=== PATIENT | male | born 1950 ===

== ENCOUNTER 2023-03-21 17:37 | Inpatient (IN) | payer MEDICARE, SELFPAY ==
[2023-03-21 18:13] VITALS: BMI 22.2
[2023-03-21 18:26] VITALS: BP 138/84; PULSE 79; RESP 18; TEMP 36.7; O2SAT 96
--- NOTE | 2023-03-21 19:09 | PC.ADMIT ---
Kai was admitted to at 1750 from [place] on a CV for treatment of MDD and anxiety d/o. .? Precipitant of admission include Patient cutting left wrists superficially in an attempt to complete suicide. Patient then called an ambulance seeking help. Kai is alert and oriented x4 during admission assessment. Pleasant and cooperative. Mood is depressed with a congruent affect. Denies SI/HI/AH/VH. Patient reported that he does not want to harm himself anymore, I just want help . Thought process is linear and clear. Does not exhibit any paranoia, delusional, or overt psychosis.?Speech WNL. Eye contact appropriate and WNL. Reports that at home he has been increasingly depressed. Stated that anxiety and depression are both severe. Attributed these? to the passing of his 5 years ago and removal of his prostate years ago as well. Patient endorsed having vivid nightmares which included images of his . Reported poor sleep due to these nightmares. Reported appetite at home is poor as well, weight loss unknown.? No acute issues with patients at this time. Wears a brief d/t urinary incontinence.? Per policy patient is on 5 minute checks. Appears to be steady on his feet with no ambulatory aid.? Med Rec [facility] [place]. Patient reported that he only takes the Ativan, Mlatonin, and Mirtazapine regularly.
[2023-03-21] MEDS: LORazepam 0.5 MG TABLET PO (20:06)
[2023-03-21] MEDS: Mirtazapine 15 MG TABLET PO (20:06)
[2023-03-21] MEDS: Gabapentin 100 MG CAPSULE 200 MG PO (20:06)
[2023-03-21] MEDS: risperiDONE 0.25 MG TABLET 0.5 MG PO (20:06)
[2023-03-21] MEDS: Melatonin 3 MG TABLET 9 MG PO (20:23)
[2023-03-22 10:17] VITALS: BP 139/70; PULSE 76; RESP 15; TEMP 36.7; O2SAT 96
[2023-03-22] MEDS: oxyBUTYnin chloride ER 5 MG TAB.ER.24 10 MG PO (10:20)
[2023-03-22] MEDS: Gabapentin 100 MG CAPSULE 200 MG PO ×3 (10:21→21:02)
[2023-03-22] MEDS: DULoxetine HCl 20 MG CAPSULE.DR 40 MG PO (10:21)
[2023-03-22] MEDS: risperiDONE 0.25 MG TABLET 0.5 MG PO ×2 (10:21→21:02)
[2023-03-22] MEDS: LORazepam 1 MG TABLET PO ×2 (10:35→21:02)
--- NOTE | 2023-03-22 11:03 | HO.PSYADMNOT ---
HPI Date of Service: 03/22/23 Chief Complaint: F4.1 General anxiety/MDD recurrent Sources of Information: patient interviewed, chart reviewed and crisis/core team assessment reviewed HPI Subjective Notes: Zarco Warning and Conditional Voluntary Narrative: The patient is a 72-year-old male, , father of 1 adult daughter who is not involved in his care, with good social support provided by his siblings, living alone with a prior history of major depressive disorder. Also, the patient had been taking Ativan for several months to the point that he could have a iatrogenic dependence. According to the crisis assessment, the patient called 911 as for help since he was feeling depressed and suicidal with a plan to cut superficially with the [employer] equipment that he had. He was rushed to the emergency room, says by crisis and transferring to this facility for psychiatric stabilization since he reported suicidal ideation and he was unable to contract for safety. According to the crisis assessment, the patient had prior psychiatric admissions and he had been using lorazepam for several months. He stated that he ran out of lorazepam 3 days ago and he stated that he was in in a state of respiration and he had suicidal thoughts with a plan to hurt himself with the point of an arrow. During the intake interview, the patient was pleasant, cooperative, he understood Zarco warning he was able to contract for safety in the facility. He stated that he ran out of aggressive and 3 days before of the admission to the emergency room he was feeling very desperate. He admitted that he has been suffering of depressive symptoms for the last 5 years after his . He complained of depressed mood, anhedonia, lack of energy, feelings of hopelessness and worthlessness and recently suicidal thoughts. He adamantly denies psychotic symptoms and he was able to contract for safety in the facility. He admitted that he has been admitted several times before either to the [facility] in [place] and psychiatric units at [facility] in [place]. According to the crisis assessment, the patient had been using and most likely abusing and lorazepam and Tylenol p.m. and he has been poorly compliant with his regular antidepressants. Past Psychiatric History: According to the patient his 1st psychiatric contact was 3 years ago and he was started on lorazepam. He had been admitted at the [facility] in [facility] for 6 months to years ago. Also he has at least 3 prior admissions at [facility]. He stated that all his depressive symptoms worsened after the passing of his . Medical Evaluation Reviewed: Hospitalist Dimitri Pending [facility] Family History: Denies Social History: The patient is the oldest of 4 children, his milestones were achieved at expected patient was raised by his parents he had a good childhood and he graduated from high school. 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 He remarried and has an adult daughter who was not involved in his life. He has good support by his siblings. Substance History: The patient denies active substance abuse but according to the chart he had a DUI 25 years ago Trauma History: Denies Diagnostics Vital Signs (24Hr): Vital Signs - 24 hr 03/21/23 18:26 03/22/23 10:17 Temperature 98.1 F 98.0 F Pulse Rate 79 76 Respiratory Rate 18 15 Blood Pressure 138/84 139/70 Pulse Oximetry 96 96 Oxygen Delivery Method Room Air Room Air BMI result Body Mass Index 22.2 Meds/Allergies Meds Home Medications Medication Instructions Recorded Confirmed Type duloxetine 20 mg capsule,delayed 40 mg PO DAILY 03/21/23 03/21/23 History release gabapentin 100 mg capsule 200 mg PO TID 03/21/23 03/21/23 History lorazepam 0.5 mg tablet 0.5 mg PO BID PRN anxiety 03/21/23 03/21/23 History melatonin 3 mg tablet 9 mg PO BEDTIME PRN insomnia 03/21/23 03/21/23 History mirtazapine 15 mg tablet 15 mg PO BEDTIME 03/21/23 03/21/23 History oxybutynin chloride 10 mg 10 mg PO DAILY 03/21/23 03/21/23 History tablet,extended release 24 hr risperidone 0.25 mg tablet 0.5 mg PO BID 03/21/23 03/21/23 History risperidone 0.5 mg disintegrating 0.5 mg PO BID PRN Anxiety 03/21/23 03/21/23 History tablet Allergies Allergies Allergy/AdvReac Type Severity Reaction Status Date / Time No Known Allergies Allergy Verified 03/21/23 18:13 Assessment & Plan Assessment & Plan (1) Major depressive disorder, recurrent episode: Status: Acute Code(s): F33.9 - Major depressive disorder, recurrent, unspecified (2) Benzodiazepine dependence: Status: Acute Code(s): F13.20 - Sedative, hypnotic or anxiolytic dependence, uncomplicated Plan The patient is an elderly male, , with a prior history of major depressive disorder who probably is dependent to benzodiazepines at this moment, admitted for suicidal ideation in the context of running out of his lorazepam. 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 Plan 1. Gather collateral information. 2. Continue with Ativan 1 mg p.o. b.i.d. p.r.n. anxiety. The patient is fully aware that no acid but is highly addictive and he should be using sparingly. 3. The patient reported that he was on Remeron in the past we will started tonight. 4. Continue with medical workout. 5. Reassessment with results. 6. 15 minute checks since the patient is able to contract for safety in the facility. Patient educated on: diagnosis and therapeutic strategies Informed Consent: understands Reason for continued inpatient stay Substantial Risk for: harm to self, inability to function, rapid decompensation and med/psych decompensation Statement Statement: I have reviewed the history and physical and performed a pertinent examination on my patient. No changes have occurred unless specified. If the History and Physical was not performed prior to admission, the Hospitalist's service will be consulted for completing the admission physical. Time Spent With Patient Time: Total time managing care of this patient today __45__ minutes.
--- NOTE | 2023-03-22 13:39 | P.CONHOSP_ITS ---
History of Present Illness Data of Consult Service Date: 03/22/23 Primary Care Provider: Unknown Physician HPI Reason for consult: Admission H&P Pt is a 72-year-old male with a PMH significant for?prostatectomy in 2013, current smoker of 2 pack per day, anxiety, and depression who is admitted to [facility] for increasing depression and anxiety with SI and suicide attempt of superficially cutting his left wrist. Medical consult for admission H&P. ?Patient states that he ?diffuse lousy and awful?. Complains of feeling depressed and stressed, dizzy and lightheaded, and having trouble breathing with an occasional mostly nonproductive cough. Patient also complains of chronic constipation stating that he normally has a bowel movement every day but did not have one yesterday and today had to really strain in order to have a movement, which is trying very hard. Patient states that his difficulty breathing and lightheadedness and dizziness is often associated with an increase in anxiety. Denies chest pain/pressure, palpitations. Patient has been experiencing increased anxiety and depression since his 5 years ago. Patient also notes he has had some complications from prostatectomy such as leaking of urine. Review of Systems Review of Systems: Increased depression and anxiety Occasional lightheadedness and dizziness Occasional trouble breathing Occasional nonproductive cough Constipation Denies chest pain/pressure, palpitations No fever, chills, nausea, vomiting, abdominal pain Yes all other systems are reviewed and are negative [facility] Social History Household Members: None Housing: House Do you presently have visiting nurse or other home services: No Patient Tobacco Use Status: Current everyday Tobacco user Tobacco use type: Cigarette Cigarette Packs Per Day: 1 Cigarettes Per Day: 20.0 Smoked in Last 30 Days: Yes e-Cigarette/Vaping Use: Never Used Patient Interested in Nicotine Replacement: No Second Hand Smoke Exposure: No Use of substances other than those prescribed or required for medical reasons: No Currently Displaying Signs/Symptoms of Drug Intoxication Withdrawal: No Have you been hit, kicked, punched, or otherwise hurt by someone within the past year? If so, by whom?: No Do you feel safe in your current relationship?: No Current Relationship Is there a partner from a previous relationship who is making you feel unsafe now?: No Are you made to feel afraid or neglected: No Advance Directives: No Advance Directives Information Provided: No Do you have thoughts of harming others: None Do you have a plan to hurt others: No Plan Recently lost weight without trying: Unsure How much weight loss: Unsure Eating poorly because of decreased appetite: Yes Nutrition screen score: 5 Nutrition Risks: No Nutritional Risk Poor oral hygiene: No service: Yes (WUT) Sexual orientation: Straight/Heterosexual Meds Allergies Allergy/AdvReac Type Severity Reaction Status Date / Time No Known Allergies Allergy Verified 03/21/23 18:13 Active Medications: Current Medications Acetaminophen (Acetaminophen 325 Mg Tablet) 650 mg PO Q6H PRN PRN Reason: Headache/Pain Mild Scale (1-3) Al Hydroxide/Mg Hydroxide (Magnesium Hydrox/Alum Hydrox 30 Ml Oral.Susp) 30 ml PO Q6H PRN PRN Reason: Heartburn/Nausea Duloxetine HCl (Duloxetine Hcl 20 Mg Capsule.Dr) 40 mg PO DAILY [facility] Last Admin: 03/22/23 10:21 Dose: 40 mg Gabapentin (Gabapentin 100 Mg Capsule) 200 mg PO TID [facility] Last Admin: 03/22/23 10:21 Dose: 200 mg Lorazepam (Lorazepam 1 Mg Tablet) 1 mg PO BID PRN PRN Reason: Anxiety Last Admin: 03/22/23 10:35 Dose: 1 mg Magnesium Hydroxide (Milk Of Magnesia 30 Ml Oral.Susp) 30 ml PO DAILY PRN PRN Reason: Constipation Melatonin (Melatonin 3 Mg Tablet) 9 mg PO BEDTIME PRN PRN Reason: insomnia Last Admin: 03/21/23 20:23 Dose: 9 mg Mirtazapine (Mirtazapine 15 Mg Tablet) 15 mg PO BEDTIME [facility] Last Admin: 03/21/23 20:06 Dose: 15 mg Nicotine Polacrilex (Nicotine Polacrilex 2 Mg Gum) 4 mg BUCCAL Q2H PRN PRN Reason: Nicotine Cravings Oxybutynin Chloride (Oxybutynin Chloride Er 5 Mg Tab.Er.24) 10 mg PO DAILY [facility] Last Admin: 03/22/23 10:20 Dose: 10 mg Risperidone (Risperidone 0.25 Mg Tablet) 0.5 mg PO BID [facility] Last Admin: 03/22/23 10:21 Dose: 0.5 mg Risperidone (Risperidone 0.5 Mg Tablet) 0.5 mg PO BID PRN PRN Reason: Anxiety Home Medications Medication Instructions Recorded Confirmed Last Taken Type duloxetine 20 mg capsule,delayed 40 mg PO DAILY 03/21/23 03/21/23 Unknown History release gabapentin 100 mg capsule 200 mg PO TID 03/21/23 03/21/23 Unknown History lorazepam 0.5 mg tablet 0.5 mg PO BID PRN anxiety 03/21/23 03/21/23 Unknown History melatonin 3 mg tablet 9 mg PO BEDTIME PRN insomnia 03/21/23 03/21/23 Unknown History mirtazapine 15 mg tablet 15 mg PO BEDTIME 03/21/23 03/21/23 Unknown History oxybutynin chloride 10 mg 10 mg PO DAILY 03/21/23 03/21/23 Unknown History tablet,extended release 24 hr risperidone 0.25 mg tablet 0.5 mg PO BID 03/21/23 03/21/23 Unknown History risperidone 0.5 mg disintegrating 0.5 mg PO BID PRN Anxiety 03/21/23 03/21/23 Unknown History tablet Physical Exam Vital Signs and Narrative: Vital Signs: Last Vital Signs Temp 98.0 F 03/22/23 10:17 Pulse 76 03/22/23 10:17 Resp 15 03/22/23 10:17 BP 139/70 03/22/23 10:17 Pulse Ox 96 03/22/23 10:17 O2 Del Method Room Air 03/22/23 10:17 BMI result Body Mass Index 22.2 Constitutional: Alert, in no acute distress. Mental Status: Oriented to person, place and time. Eyes: Pupils are equal, round, and reactive to light. Ear, Nose, and Throat: Oropharynx clear, mucous membranes moist. Ears and nose without deformities. Trachea midline. Respiratory: Clear to auscultation bilaterally. No wheezing, rales, or rhonchi. Cardiovascular: S1, S2 regular. No murmurs, rubs, or gallops. Gastrointestinal: Abdomen soft, non-tender, non-distended. Normal bowel sounds. Neurologic: Cranial nerves II-XII are grossly intact bilaterally. No focal neurological deficits. Moves all extremities spontaneously. Extremities: No edema. Psychiatric: Anxious, affect flat. Assessment and Plan (1) Routine history and physical examination of adult: Status: Acute Plan Pt is a 72-year-old male with a PMH significant for?prostatectomy in 2013, current smoker of 2 pack per day, anxiety, and depression who is admitted to [facility] for increasing depression and anxiety with SI and suicide attempt of superficially cutting his left wrist. Medical consult for admission H&P. ? Mood disorder Plan as per psychiatry Lightheaded, dizziness Likely secondary to anxiety Patient's BP stable, not hypotensive Encourage p.o. intake of liquids Difficulty breathing/chronic cough Likely secondary to anxiety and history of smoking Lungs clear to auscultation Patient smokes 2 packs of cigarettes a day Does not want nicotine replacement therapy Smoking cessation advised Constipation Patient states that he has had chronic constipation, the states he normally has bowel movement every day Encourage high-fiber diet, p.o. intake of fluids, ambulation, and stool softeners Thank you for allowing us to participate in the care of this patient. Signing off at this time. Please let us know if there are any acute complaints or questions. Time Spent With Patient Time: Total time managing care of this patient today ____ minutes.
--- NOTE | 2023-03-22 14:11 | MHC.CLN ---
NUTRITION CONSULT FOR WEIGHT LOSS AND DECREASED APPETITE. REPORTS UBW 147#. CURRENT WEIGHT APPROX 146#. ATE 100% AT BREAKFAST AND LUNCH TODAY. REPORTS GOOD APPETITE AND TAKES BOOST AT HOME. ADDING ENSURE BID-CHOCOLATE FLAVOR. PROVIDES 700 KCALS, 40 G PROTEIN.
[2023-03-22 20:55] VITALS: BP 143/70; PULSE 98; RESP 17; TEMP 36.9; O2SAT 93
[2023-03-22] MEDS: Melatonin 3 MG TABLET 9 MG PO (21:01)
[2023-03-22] MEDS: Mirtazapine 15 MG TABLET PO (21:02)
[2023-03-23 08:15] VITALS: BP 113/77; PULSE 90; RESP 18; TEMP 36.1; O2SAT 96
[2023-03-23] MEDS: oxyBUTYnin chloride ER 5 MG TAB.ER.24 10 MG PO (09:10)
[2023-03-23] MEDS: risperiDONE 0.25 MG TABLET 0.5 MG PO ×2 (09:10→20:19)
[2023-03-23] MEDS: Gabapentin 100 MG CAPSULE 200 MG PO ×3 (09:10→20:19)
[2023-03-23] MEDS: LORazepam 1 MG TABLET PO ×2 (09:10→20:19)
[2023-03-23] MEDS: DULoxetine HCl 20 MG CAPSULE.DR 40 MG PO (09:10)
--- NOTE | 2023-03-23 11:50 | P.PNPSI_ITS ---
Subjective Subjective Date of Service: 03/23/23 Reason For Visit: F4.1 General anxiety/MDD recurrent Subjective Notes: Conditional Voluntary Interim History: The nursing staff reported the patient spent most of the time his bed, he refused Ativan p.r.n. and so far he has been medication compliant. He slept well last night. On interview the patient reports mild dysphoria and agreed to continue with treatment. We will try to gather more collateral information. Mental Status Exam Mental Status Exam Patient Appearance: Well Grooomed and Appropriate Patient Orientation: Person and Situation Level of Consciousness: Awake and Appropriate Mood Description: Constricted Affect Description: Calm Patient Cognition Impaired: Yes Ability to Follow Directions: Good Speech Pattern: Clear Hallucinations: None Delusions: Not Present Thought Process: Linear Thought Content: positive for Hennessey and positive for Goal Oriented Judgement: Fair Diagnostics Vital Signs (24Hr): Vital Signs - 24 hr 03/22/23 20:55 03/23/23 08:15 Temperature 98.4 F 96.9 F Pulse Rate 98 90 Respiratory Rate 17 18 Blood Pressure 143/70 H 113/77 Pulse Oximetry 93 96 Oxygen Delivery Method Room Air Room Air BMI result Body Mass Index 22.2 Medications Medications Current Medications Acetaminophen (Acetaminophen 325 Mg Tablet) 650 mg PO Q6H PRN PRN Reason: Headache/Pain Mild Scale (1-3) Al Hydroxide/Mg Hydroxide (Magnesium Hydrox/Alum Hydrox 30 Ml Oral.Susp) 30 ml PO Q6H PRN PRN Reason: Heartburn/Nausea Duloxetine HCl (Duloxetine Hcl 20 Mg Capsule.Dr) 40 mg PO DAILY [facility] Last Admin: 03/23/23 09:10 Dose: 40 mg Gabapentin (Gabapentin 100 Mg Capsule) 200 mg PO TID [facility] Last Admin: 03/23/23 09:10 Dose: 200 mg Lorazepam (Lorazepam 1 Mg Tablet) 1 mg PO BID PRN PRN Reason: Anxiety Last Admin: 03/23/23 09:10 Dose: 1 mg Magnesium Hydroxide (Milk Of Magnesia 30 Ml Oral.Susp) 30 ml PO DAILY PRN PRN Reason: Constipation Melatonin (Melatonin 3 Mg Tablet) 9 mg PO BEDTIME PRN PRN Reason: insomnia Last Admin: 03/22/23 21:01 Dose: 9 mg Mirtazapine (Mirtazapine 15 Mg Tablet) 15 mg PO BEDTIME [facility] Last Admin: 03/22/23 21:02 Dose: 15 mg Nicotine Polacrilex (Nicotine Polacrilex 2 Mg Gum) 4 mg BUCCAL Q2H PRN PRN Reason: Nicotine Cravings Oxybutynin Chloride (Oxybutynin Chloride Er 5 Mg Tab.Er.24) 10 mg PO DAILY [facility] Last Admin: 03/23/23 09:10 Dose: 10 mg Risperidone (Risperidone 0.25 Mg Tablet) 0.5 mg PO BID [facility] Last Admin: 03/23/23 09:10 Dose: 0.5 mg Risperidone (Risperidone 0.5 Mg Tablet) 0.5 mg PO BID PRN PRN Reason: Anxiety Allergies Allergies Allergy/AdvReac Type Severity Reaction Status Date / Time No Known Allergies Allergy Verified 03/21/23 18:13 Assessment & Plan Assessment & Plan (1) Major depressive disorder, recurrent episode: Status: Acute Code(s): F33.9 - Major depressive disorder, recurrent, unspecified (2) Benzodiazepine dependence: Status: Acute Code(s): F13.20 - Sedative, hypnotic or anxiolytic dependence, uncomplicated Plan The patient is an elderly male, , with a prior history of major depressive disorder who probably is dependent to benzodiazepines at this moment, admitted for suicidal ideation in the context of running out of his lorazepam. 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 Plan 1. Gather collateral information. 2. Continue with Ativan 1 mg p.o. b.i.d. p.r.n. anxiety. The patient is fully aware that no acid but is highly addictive and he should be using sparingly. 3. The patient reported that he was on Remeron in the past we will started tonight. 4. Continue with medical workout. 5. Reassessment with results. 6. 15 minute checks since the patient is able to contract for safety in the facility. Reason for continued inpatient stay Substantial Risk for: inability to function, rapid decompensation and med/psych decompensation Time Spent With Patient Time: Total time managing care of this patient today __20__ minutes.
[2023-03-23 19:46] VITALS: BP 141/65; PULSE 86; RESP 16; TEMP 36.4; O2SAT 93
[2023-03-23] MEDS: Melatonin 3 MG TABLET 9 MG PO (20:19)
[2023-03-23] MEDS: Mirtazapine 15 MG TABLET PO (20:21)
[2023-03-24 07:55] VITALS: BP 137/75; PULSE 74; RESP 16; TEMP 36.4; O2SAT 95
[2023-03-24] MEDS: DULoxetine HCl 20 MG CAPSULE.DR 40 MG PO (08:15)
[2023-03-24] MEDS: risperiDONE 0.25 MG TABLET 0.5 MG PO ×2 (08:15→20:45)
[2023-03-24] MEDS: Gabapentin 100 MG CAPSULE 200 MG PO ×3 (08:16→20:45)
[2023-03-24] MEDS: oxyBUTYnin chloride ER 5 MG TAB.ER.24 10 MG PO (08:16)
[2023-03-24] MEDS: LORazepam 1 MG TABLET PO ×2 (08:22→20:49)
--- NOTE | 2023-03-24 15:16 | HO.PSYCHPN ---
Subjective Subjective Date of Service: 03/24/23 Reason For Visit: F4.1 General anxiety/MDD recurrent Subjective Notes: Conditional Voluntary Interim History: The nursing staff reported the patient had been using Ativan and he spent most of the time in his room. He has been medication compliant. The high school social studies teacher reported they are trying to contact his 2 brothers and sister who are there close his contacts. On interview the patient denies new symptoms still dysphoric but able to contract for safety in the facility. Mental Status Exam Mental Status Exam Patient Appearance: Well Grooomed Patient Orientation: Person and Situation Level of Consciousness: Awake and Appropriate Patient Behavior: Guarded and Passive Affect Description: Constricted Patient Cognition Impaired: Yes Ability to Follow Directions: Good Speech Pattern: Appropriate Hallucinations: None Delusions: Not Present Thought Process: Linear Thought Content: positive for Circumstantial Judgement: Fair Diagnostics Vital Signs (24Hr): Vital Signs - 24 hr 03/23/23 19:46 03/24/23 07:55 Temperature 97.6 F 97.6 F Pulse Rate 86 74 Respiratory Rate 16 16 Blood Pressure 141/65 H 137/75 Pulse Oximetry 93 95 Oxygen Delivery Method Room Air Room Air BMI result Body Mass Index 22.2 Medications Medications Current Medications Acetaminophen (Acetaminophen 325 Mg Tablet) 650 mg PO Q6H PRN PRN Reason: Headache/Pain Mild Scale (1-3) Al Hydroxide/Mg Hydroxide (Magnesium Hydrox/Alum Hydrox 30 Ml Oral.Susp) 30 ml PO Q6H PRN PRN Reason: Heartburn/Nausea Duloxetine HCl (Duloxetine Hcl 20 Mg Capsule.Dr) 40 mg PO DAILY [facility] Last Admin: 03/24/23 08:15 Dose: 40 mg Gabapentin (Gabapentin 100 Mg Capsule) 200 mg PO TID [facility] Last Admin: 03/24/23 14:34 Dose: 200 mg Lorazepam (Lorazepam 1 Mg Tablet) 1 mg PO BID PRN PRN Reason: Anxiety Last Admin: 03/24/23 08:22 Dose: 1 mg Magnesium Hydroxide (Milk Of Magnesia 30 Ml Oral.Susp) 30 ml PO DAILY PRN PRN Reason: Constipation Melatonin (Melatonin 3 Mg Tablet) 9 mg PO BEDTIME PRN PRN Reason: insomnia Last Admin: 03/23/23 20:19 Dose: 9 mg Mirtazapine (Mirtazapine 15 Mg Tablet) 15 mg PO BEDTIME [facility] Last Admin: 07/13/23 20:21 Dose: 15 mg Nicotine Polacrilex (Nicotine Polacrilex 2 Mg Gum) 4 mg BUCCAL Q2H PRN PRN Reason: Nicotine Cravings Oxybutynin Chloride (Oxybutynin Chloride Er 5 Mg Tab.Er.24) 10 mg PO DAILY [facility] Last Admin: 03/24/23 08:16 Dose: 10 mg Risperidone (Risperidone 0.25 Mg Tablet) 0.5 mg PO BID [facility] Last Admin: 03/24/23 08:15 Dose: 0.5 mg Risperidone (Risperidone 0.5 Mg Tablet) 0.5 mg PO BID PRN PRN Reason: Anxiety Allergies Allergies Allergy/AdvReac Type Severity Reaction Status Date / Time No Known Allergies Allergy Verified 03/21/23 18:13 Assessment & Plan Assessment & Plan (1) Major depressive disorder, recurrent episode: Status: Acute Code(s): F33.9 - Major depressive disorder, recurrent, unspecified (2) Benzodiazepine dependence: Status: Acute Code(s): F13.20 - Sedative, hypnotic or anxiolytic dependence, uncomplicated Plan The patient is an elderly male, , with a prior history of major depressive disorder who probably is dependent to benzodiazepines at this moment, admitted for suicidal ideation in the context of running out of his lorazepam. 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 Plan 1. Gather collateral information. 2. Continue with Ativan 1 mg p.o. b.i.d. p.r.n. anxiety. The patient is fully aware that no acid but is highly addictive and he should be using sparingly. 3. The patient reported that he was on Remeron in the past we will started tonight. 4. Continue with medical workout. 5. Reassessment with results. 6. 15 minute checks since the patient is able to contract for safety in the facility. Reason for continued inpatient stay Substantial Risk for: inability to function, rapid decompensation and med/psych decompensation Time Spent With Patient Time: Total time managing care of this patient today __20__ minutes.
[2023-03-24 20:15] VITALS: BP 115/59; PULSE 58; RESP 18; TEMP 36.7; O2SAT 96
[2023-03-24] MEDS: Mirtazapine 15 MG TABLET PO (20:45)
[2023-03-24] MEDS: Melatonin 3 MG TABLET 9 MG PO (20:49)
[2023-03-25 08:00] VITALS: BP 128/65; PULSE 70; RESP 16; TEMP 36.8; O2SAT 96
[2023-03-25] MEDS: risperiDONE 0.25 MG TABLET 0.5 MG PO ×2 (09:34→20:38)
[2023-03-25] MEDS: Gabapentin 100 MG CAPSULE 200 MG PO ×3 (09:34→20:39)
[2023-03-25] MEDS: DULoxetine HCl 20 MG CAPSULE.DR 40 MG PO (09:34)
[2023-03-25] MEDS: LORazepam 1 MG TABLET PO ×2 (09:35→20:39)
[2023-03-25] MEDS: oxyBUTYnin chloride ER 5 MG TAB.ER.24 10 MG PO (09:35)
--- NOTE | 2023-03-25 17:16 | HO.PSYCHPN ---
Subjective Subjective Date of Service: 03/25/23 Reason For Visit: F4.1 General anxiety/MDD recurrent Subjective Notes: Conditional Voluntary Interim History: States that he feels no better than on admission. I'm a nervous wreck. Some sleep disturbance. Appetite fair. Wants more meds for anxiety. Medication Compliance: Yes Side effects from medications: No Attending Groups: Yes Review of Systems Acute medical concerns: No Medical Review of Systems: unchanged Mental Status Exam Mental Status Exam Patient Appearance: Unkempt Patient Orientation: Person, Place, Time and Situation Level of Consciousness: Alert Behavior Comments: lying in bed Mood Description: Nervous Affect Description: Anxious Ability to Follow Directions: Good Speech Pattern: Clear Memory Description: Intact Hallucinations: None Delusions: Not Present Thought Process: Intact Thought Content: positive for Intact Depressive Symptoms: Increased Anxiety and Insomnia Judgement: Fair Diagnostics Vital Signs (24Hr): Vital Signs - 24 hr 03/24/23 20:15 03/25/23 08:00 Temperature 98.1 F 98.2 F Pulse Rate 58 70 Respiratory Rate 18 16 Blood Pressure 115/59 L 128/65 Pulse Oximetry 96 96 Oxygen Delivery Method Room Air Room Air BMI result Body Mass Index 22.2 Medications Medications Current Medications Acetaminophen (Acetaminophen 325 Mg Tablet) 650 mg PO Q6H PRN PRN Reason: Headache/Pain Mild Scale (1-3) Al Hydroxide/Mg Hydroxide (Magnesium Hydrox/Alum Hydrox 30 Ml Oral.Susp) 30 ml PO Q6H PRN PRN Reason: Heartburn/Nausea Duloxetine HCl (Duloxetine Hcl 20 Mg Capsule.Dr) 40 mg PO DAILY [facility] Last Admin: 03/25/23 09:34 Dose: 40 mg Gabapentin (Gabapentin 100 Mg Capsule) 200 mg PO TID [facility] Last Admin: 03/25/23 16:05 Dose: 200 mg Lorazepam (Lorazepam 1 Mg Tablet) 1 mg PO BID PRN PRN Reason: Anxiety Last Admin: 03/25/23 09:35 Dose: 1 mg Magnesium Hydroxide (Milk Of Magnesia 30 Ml Oral.Susp) 30 ml PO DAILY PRN PRN Reason: Constipation Melatonin (Melatonin 3 Mg Tablet) 9 mg PO BEDTIME PRN PRN Reason: insomnia Last Admin: 03/24/23 20:49 Dose: 9 mg Mirtazapine (Mirtazapine 15 Mg Tablet) 15 mg PO BEDTIME [facility] Last Admin: 03/24/23 20:45 Dose: 15 mg Nicotine Polacrilex (Nicotine Polacrilex 2 Mg Gum) 4 mg BUCCAL Q2H PRN PRN Reason: Nicotine Cravings Oxybutynin Chloride (Oxybutynin Chloride Er 5 Mg Tab.Er.24) 10 mg PO DAILY [facility] Last Admin: 03/25/23 09:35 Dose: 10 mg Risperidone (Risperidone 0.25 Mg Tablet) 0.5 mg PO BID [facility] Last Admin: 03/25/23 09:34 Dose: 0.5 mg Risperidone (Risperidone 0.5 Mg Tablet) 0.5 mg PO BID PRN PRN Reason: Anxiety Allergies Allergies Allergy/AdvReac Type Severity Reaction Status Date / Time No Known Allergies Allergy Verified 03/21/23 18:13 Assessment & Plan Assessment & Plan (1) Major depressive disorder, recurrent episode: Status: Acute Code(s): F33.9 - Major depressive disorder, recurrent, unspecified Assessment and Plan: change ativan to 0.5 mg bid and 1 mg nightly standing dose (2) Benzodiazepine dependence: Status: Acute Code(s): F13.20 - Sedative, hypnotic or anxiolytic dependence, uncomplicated Plan The patient is an elderly male, , with a prior history of major depressive disorder who probably is dependent to benzodiazepines at this moment, admitted for suicidal ideation in the context of running out of his lorazepam. 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 Plan 1. Gather collateral information. 2. Continue with Ativan 1 mg p.o. b.i.d. p.r.n. anxiety. The patient is fully aware that no acid but is highly addictive and he should be using sparingly. 3. The patient reported that he was on Remeron in the past we will started tonight. 4. Continue with medical workout. 5. Reassessment with results. 6. 15 minute checks since the patient is able to contract for safety in the facility. Reason for continued inpatient stay Substantial Risk for: inability to function Time Spent With Patient Time: Total time managing care of this patient today _25___ minutes.
[2023-03-25 20:13] VITALS: BP 109/68; PULSE 84; RESP 18; TEMP 36.6; O2SAT 96
[2023-03-25] MEDS: Mirtazapine 15 MG TABLET PO (20:39)
[2023-03-25] MEDS: Melatonin 3 MG TABLET 9 MG PO (20:44)
[2023-03-26 08:30] VITALS: BP 118/68; PULSE 84; RESP 16; TEMP 36.5; O2SAT 98
[2023-03-26] MEDS: Milk of Magnesia 30 ML ORAL.SUSP PO (09:12)
[2023-03-26] MEDS: risperiDONE 0.25 MG TABLET 0.5 MG PO ×2 (09:13→20:18)
[2023-03-26] MEDS: oxyBUTYnin chloride ER 5 MG TAB.ER.24 10 MG PO (09:13)
[2023-03-26] MEDS: Gabapentin 100 MG CAPSULE 200 MG PO ×3 (09:14→20:17)
[2023-03-26] MEDS: DULoxetine HCl 20 MG CAPSULE.DR 40 MG PO (09:14)
[2023-03-26] MEDS: LORazepam 0.5 MG TABLET PO ×2 (09:15→13:34)
--- NOTE | 2023-03-26 13:11 | P.PNPSI_ITS ---
Subjective Subjective Date of Service: 03/26/23 Reason For Visit: F4.1 General anxiety/MDD recurrent Subjective Notes: Conditional Voluntary Medical Problems Affecting Mental Status: No Interim History: Remains very anxious. Ativan dose was split to tid dosing yesterday. Patient did feel reassured to have afternoon dose. Medication Compliance: Yes Side effects from medications: No Attending Groups: No Review of Systems Acute medical concerns: No Medical Review of Systems: unchanged Mental Status Exam Mental Status Exam Patient Appearance: Unkempt Patient Orientation: Person, Place, Time and Situation Level of Consciousness: Alert Patient Behavior: Isolative Behavior Comments: Lying in bed much of the day. Mood Description: Anxious Affect Description: Anxious Patient Cognition Impaired: No Ability to Follow Directions: Good Speech Pattern: Perseverating Memory Description: Intact Hallucinations: None Delusions: Not Present Thought Content: positive for Perseveration Depressive Symptoms: Increased Anxiety and Difficulty Sleeping Judgement: Fair Diagnostics Vital Signs (24Hr): Vital Signs - 24 hr 03/25/23 20:13 03/26/23 08:30 Temperature 97.8 F 97.7 F Pulse Rate 84 84 Respiratory Rate 18 16 Blood Pressure 109/68 118/68 Pulse Oximetry 96 98 Oxygen Delivery Method Room Air Room Air BMI result Body Mass Index 22.2 Medications Medications Current Medications Acetaminophen (Acetaminophen 325 Mg Tablet) 650 mg PO Q6H PRN PRN Reason: Headache/Pain Mild Scale (1-3) Al Hydroxide/Mg Hydroxide (Magnesium Hydrox/Alum Hydrox 30 Ml Oral.Susp) 30 ml PO Q6H PRN PRN Reason: Heartburn/Nausea Duloxetine HCl (Duloxetine Hcl 20 Mg Capsule.) 40 mg PO DAILY [facility] [place] Last Admin: 03/26/23 09:14 Dose: 40 mg Gabapentin (Gabapentin 100 Mg Capsule) 200 mg PO TID [facility] [place] Last Admin: 03/26/23 09:14 Dose: 200 mg Lorazepam (Lorazepam 1 Mg Tablet) 1 mg PO BEDTIME [facility] [place] Last Admin: 03/25/23 20:39 Dose: 1 mg Lorazepam (Lorazepam 0.5 Mg Tablet) 0.5 mg PO BID@0830,1330 [facility] [place] Last Admin: 03/26/23 09:15 Dose: 0.5 mg Magnesium Hydroxide (Milk Of Magnesia 30 Ml Oral.Susp) 30 ml PO DAILY PRN PRN Reason: Constipation Last Admin: 03/26/23 09:12 Dose: 30 ml Melatonin (Melatonin 3 Mg Tablet) 9 mg PO BEDTIME PRN PRN Reason: insomnia Last Admin: 03/25/23 20:44 Dose: 9 mg Mirtazapine (Mirtazapine 15 Mg Tablet) 15 mg PO BEDTIME [facility] [place] Last Admin: 03/25/23 20:39 Dose: 15 mg Nicotine Polacrilex (Nicotine Polacrilex 2 Mg Gum) 4 mg BUCCAL Q2H PRN PRN Reason: Nicotine Cravings Oxybutynin Chloride (Oxybutynin Chloride Er 5 Mg Tab.Er.24) 10 mg PO DAILY [facility] [place] Last Admin: 03/26/23 09:13 Dose: 10 mg Risperidone (Risperidone 0.25 Mg Tablet) 0.5 mg PO BID [facility] [place] Last Admin: 03/26/23 09:13 Dose: 0.5 mg Risperidone (Risperidone 0.5 Mg Tablet) 0.5 mg PO BID PRN PRN Reason: Anxiety Allergies Allergies Allergy/AdvReac Type Severity Reaction Status Date / Time No Known Allergies Allergy Verified 03/21/23 18:13 Assessment & Plan Assessment & Plan (1) Major depressive disorder, recurrent episode: Status: Acute Code(s): F33.9 - Major depressive disorder, recurrent, unspecified Assessment and Plan: 03/25: change ativan to 0.5 mg bid and 1 mg nightly standing dose (2) Benzodiazepine dependence: Status: Acute Code(s): F13.20 - Sedative, hypnotic or anxiolytic dependence, uncomplicated Plan The patient is an elderly male, , with a prior history of major depressive disorder who probably is dependent to benzodiazepines at this moment, admitted for suicidal ideation in the context of running out of his lorazepam. 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 Plan 1. Gather collateral information. 2. Continue with Ativan 1 mg p.o. b.i.d. p.r.n. anxiety. The patient is fully aware that no acid but is highly addictive and he should be using sparingly. 3. The patient reported that he was on Remeron in the past we will started tonight. 4. Continue with medical workout. 5. Reassessment with results. 6. 15 minute checks since the patient is able to contract for safety in the facility. Reason for continued inpatient stay Substantial Risk for: inability to function Time Spent With Patient Time: Total time managing care of this patient today 15____ minutes.
[2023-03-26 20:00] VITALS: BP 150/72; PULSE 77; RESP 16; TEMP 36.7; O2SAT 94
[2023-03-26] MEDS: LORazepam 1 MG TABLET PO (20:17)
[2023-03-26] MEDS: Mirtazapine 15 MG TABLET PO (20:17)
[2023-03-26] MEDS: Melatonin 3 MG TABLET 9 MG PO (20:18)
[2023-03-26] MEDS: Acetaminophen 325 MG TABLET 650 MG PO (20:18)
[2023-03-27 08:00] VITALS: BP 134/73; PULSE 72; RESP 16; TEMP 36.8; O2SAT 95
[2023-03-27] MEDS: oxyBUTYnin chloride ER 5 MG TAB.ER.24 10 MG PO (08:23)
[2023-03-27] MEDS: LORazepam 0.5 MG TABLET PO ×2 (08:23→13:38)
[2023-03-27] MEDS: Gabapentin 100 MG CAPSULE 200 MG PO (08:23)
[2023-03-27] MEDS: risperiDONE 0.25 MG TABLET 0.5 MG PO ×2 (08:24→20:34)
[2023-03-27] MEDS: DULoxetine HCl 20 MG CAPSULE.DR 40 MG PO (08:24)
--- NOTE | 2023-03-27 11:24 | HO.PSYCHPN ---
Subjective Subjective Date of Service: 03/27/23 Reason For Visit: F4.1 General anxiety/MDD recurrent Subjective Notes: Conditional Voluntary Interim History: The nursing staff reported the patient has been isolative in his room but coming out today his Ativan religiously. Apparently, the patient has refused to use other coping skills to target anxiety he only likes his Ativan. The renal social worker reported that she called his brother and left messages and will try to get collateral information. On interview the patient reports anxiety I explained him that we increased his gabapentin up to 300 mg p.o. t.i.d. to target anxiety. Mental Status Exam Mental Status Exam Patient Appearance: Appropriate Patient Orientation: Person and Situation Level of Consciousness: Awake and Appropriate Patient Behavior: Guarded and Passive Mood Description: Withdrawn Affect Description: Constricted Patient Cognition Impaired: Yes Ability to Follow Directions: Good Speech Pattern: Clear Hallucinations: None Delusions: Not Present Thought Process: Linear Thought Content: positive for Circumstantial Judgement: Fair Diagnostics Vital Signs (24Hr): Vital Signs - 24 hr 03/26/23 20:00 03/27/23 08:00 Temperature 98.0 F 98.2 F Pulse Rate 77 72 Respiratory Rate 16 16 Blood Pressure 150/72 H 134/73 Pulse Oximetry 94 95 Oxygen Delivery Method Room Air Room Air BMI result Body Mass Index 22.2 Medications Medications Current Medications Acetaminophen (Acetaminophen 325 Mg Tablet) 650 mg PO Q6H PRN PRN Reason: Headache/Pain Mild Scale (1-3) Last Admin: 03/26/23 20:18 Dose: 650 mg Al Hydroxide/Mg Hydroxide (Magnesium Hydrox/Alum Hydrox 30 Ml Oral.Susp) 30 ml PO Q6H PRN PRN Reason: Heartburn/Nausea Duloxetine HCl (Duloxetine Hcl 20 Mg Capsule.Dr) 40 mg PO DAILY [facility] Last Admin: 03/27/23 08:24 Dose: 40 mg Gabapentin (Gabapentin 300 Mg Capsule) 300 mg PO TID [facility] Lorazepam (Lorazepam 1 Mg Tablet) 1 mg PO BEDTIME [facility] Last Admin: 03/26/23 20:17 Dose: 1 mg Lorazepam (Lorazepam 0.5 Mg Tablet) 0.5 mg PO BID@0830,1330 [facility] Last Admin: 03/27/23 08:23 Dose: 0.5 mg Magnesium Hydroxide (Milk Of Magnesia 30 Ml Oral.Susp) 30 ml PO DAILY PRN PRN Reason: Constipation Last Admin: 03/26/23 09:12 Dose: 30 ml Melatonin (Melatonin 3 Mg Tablet) 9 mg PO BEDTIME PRN PRN Reason: insomnia Last Admin: 03/26/23 20:18 Dose: 9 mg Mirtazapine (Mirtazapine 15 Mg Tablet) 15 mg PO BEDTIME [facility] Last Admin: 03/26/23 20:17 Dose: 15 mg Nicotine Polacrilex (Nicotine Polacrilex 2 Mg Gum) 4 mg BUCCAL Q2H PRN PRN Reason: Nicotine Cravings Oxybutynin Chloride (Oxybutynin Chloride Er 5 Mg Tab.Er.24) 10 mg PO DAILY [facility] Last Admin: 03/27/23 08:23 Dose: 10 mg Risperidone (Risperidone 0.25 Mg Tablet) 0.5 mg PO BID [facility] Last Admin: 03/27/23 08:24 Dose: 0.5 mg Risperidone (Risperidone 0.5 Mg Tablet) 0.5 mg PO BID PRN PRN Reason: Anxiety Allergies Allergies Allergy/AdvReac Type Severity Reaction Status Date / Time No Known Allergies Allergy Verified 03/21/23 18:13 Assessment & Plan Assessment & Plan (1) Major depressive disorder, recurrent episode: Status: Acute Code(s): F33.9 - Major depressive disorder, recurrent, unspecified Assessment and Plan: 03/25: change ativan to 0.5 mg bid and 1 mg nightly standing dose (2) Benzodiazepine dependence: Status: Acute Code(s): F13.20 - Sedative, hypnotic or anxiolytic dependence, uncomplicated Plan The patient is an elderly male, , with a prior history of major depressive disorder who probably is dependent to benzodiazepines at this moment, admitted for suicidal ideation in the context of running out of his lorazepam. 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 Plan 1. Gather collateral information. 2. Continue with Ativan 1 mg p.o. b.i.d. p.r.n. anxiety. The patient is fully aware that no acid but is highly addictive and he should be using sparingly. 3. The patient reported that he was on Remeron in the past we will started tonight. 4. Continue with medical workout. 5. Reassessment with results. 6. 15 minute checks since the patient is able to contract for safety in the facility. 7. Increase gabapentin up to 300 mg t.i.d. on March 27 to target anxiety. Reason for continued inpatient stay Substantial Risk for: inability to function, rapid decompensation and med/psych decompensation Time Spent With Patient Time: Total time managing care of this patient today __20__ minutes.
[2023-03-27] MEDS: Gabapentin 300 MG CAPSULE PO ×2 (14:57→20:33)
[2023-03-27 18:00] VITALS: BP 141/65; PULSE 69; RESP 18; TEMP 36.6; O2SAT 96
[2023-03-27] MEDS: Mirtazapine 15 MG TABLET PO (20:33)
[2023-03-27] MEDS: LORazepam 1 MG TABLET PO (20:33)
[2023-03-27] MEDS: Melatonin 3 MG TABLET 9 MG PO (20:34)
[2023-03-28 08:00] VITALS: BP 138/68; PULSE 70; RESP 18; TEMP 36.7; O2SAT 96
[2023-03-28] MEDS: LORazepam 0.5 MG TABLET PO ×2 (08:29→15:19)
[2023-03-28] MEDS: risperiDONE 0.25 MG TABLET 0.5 MG PO ×2 (08:29→20:37)
[2023-03-28] MEDS: DULoxetine HCl 20 MG CAPSULE.DR 40 MG PO (08:29)
[2023-03-28] MEDS: Gabapentin 300 MG CAPSULE PO ×3 (08:29→20:37)
[2023-03-28] MEDS: oxyBUTYnin chloride ER 5 MG TAB.ER.24 10 MG PO (08:29)
--- NOTE | 2023-03-28 15:32 | P.PNPSI_ITS ---
Subjective Subjective Date of Service: 03/28/23 Reason For Visit: F4.1 General anxiety/MDD recurrent Subjective Notes: Conditional Voluntary Interim History: The nursing staff reported the patient isolates to himself yet room he does not participating in groups. The social sciences instructor reported that contact his serum brother and trying to get to clean his apartment. On interview the patient reports that he is not feeling well that he is anxious but it seems that he has drug-seeking behavior in mostly with Ativan. Mental Status Exam Mental Status Exam Patient Appearance: Appropriate Patient Orientation: Person and Situation Level of Consciousness: Awake and Appropriate Patient Behavior: Guarded and Passive Mood Description: Calm and Constricted Affect Description: Constricted Patient Cognition Impaired: Yes Ability to Follow Directions: Good Speech Pattern: Clear Hallucinations: None Delusions: Not Present Thought Process: Distracted Thought Content: positive for Linear Judgement: Fair Diagnostics Vital Signs (24Hr): Vital Signs - 24 hr 03/27/23 18:00 03/28/23 08:00 Temperature 97.9 F 98.0 F Pulse Rate 69 70 Respiratory Rate 18 18 Blood Pressure 141/65 H 138/68 Pulse Oximetry 96 96 Oxygen Delivery Method Room Air Room Air BMI result Body Mass Index 22.2 Medications Medications Current Medications Acetaminophen (Acetaminophen 325 Mg Tablet) 650 mg PO Q6H PRN PRN Reason: Headache/Pain Mild Scale (1-3) Last Admin: 03/26/23 20:18 Dose: 650 mg Al Hydroxide/Mg Hydroxide (Magnesium Hydrox/Alum Hydrox 30 Ml Oral.Susp) 30 ml PO Q6H PRN PRN Reason: Heartburn/Nausea Duloxetine HCl (Duloxetine Hcl 20 Mg Capsule.Dr) 40 mg PO DAILY [facility] Last Admin: 03/28/23 08:29 Dose: 40 mg Gabapentin (Gabapentin 300 Mg Capsule) 300 mg PO TID [facility] Last Admin: 03/28/23 15:19 Dose: 300 mg Lorazepam (Lorazepam 1 Mg Tablet) 1 mg PO BEDTIME [facility] Last Admin: 03/27/23 20:33 Dose: 1 mg Lorazepam (Lorazepam 0.5 Mg Tablet) 0.5 mg PO BID@0830,1330 [facility] Last Admin: 03/28/23 15:19 Dose: 0.5 mg Magnesium Hydroxide (Milk Of Magnesia 30 Ml Oral.Susp) 30 ml PO DAILY PRN PRN Reason: Constipation Last Admin: 03/26/23 09:12 Dose: 30 ml Melatonin (Melatonin 3 Mg Tablet) 9 mg PO BEDTIME PRN PRN Reason: insomnia Last Admin: 03/27/23 20:34 Dose: 9 mg Mirtazapine (Mirtazapine 15 Mg Tablet) 15 mg PO BEDTIME [facility] Last Admin: 03/27/23 20:33 Dose: 15 mg Nicotine Polacrilex (Nicotine Polacrilex 2 Mg Gum) 4 mg BUCCAL Q2H PRN PRN Reason: Nicotine Cravings Oxybutynin Chloride (Oxybutynin Chloride Er 5 Mg Tab.Er.24) 10 mg PO DAILY [facility] Last Admin: 03/28/23 08:29 Dose: 10 mg Risperidone (Risperidone 0.25 Mg Tablet) 0.5 mg PO BID [facility] Last Admin: 03/28/23 08:29 Dose: 0.5 mg Risperidone (Risperidone 0.5 Mg Tablet) 0.5 mg PO BID PRN PRN Reason: Anxiety Allergies Allergies Allergy/AdvReac Type Severity Reaction Status Date / Time No Known Allergies Allergy Verified 03/21/23 18:13 Assessment & Plan Assessment & Plan (1) Major depressive disorder, recurrent episode: Status: Acute Code(s): F33.9 - Major depressive disorder, recurrent, unspecified Assessment and Plan: 03/25: change ativan to 0.5 mg bid and 1 mg nightly standing dose (2) Benzodiazepine dependence: Status: Acute Code(s): F13.20 - Sedative, hypnotic or anxiolytic dependence, uncomplicated Plan The patient is an elderly male, , with a prior history of major depressive disorder who probably is dependent to benzodiazepines at this moment, admitted for suicidal ideation in the context of running out of his lorazepam. The patient was assessed by crisis after he called 911 stating that he was suicidal and he was in [facility] with a point of and in a row in a suicidal attempt. Plan 1. Gather collateral information. 2. Continue with Ativan 1 mg p.o. b.i.d. p.r.n. anxiety. The patient is fully aware that no acid but is highly addictive and he should be using sparingly. 3. The patient reported that he was on Remeron in the past we will started tonight. 4. Continue with medical workout. 5. Reassessment with results. 6. 15 minute checks since the patient is able to contract for safety in the facility. 7. Increase gabapentin up to 300 mg t.i.d. on March 27 to target anxiety. 8. Increased Cymbalta to 60 mg p.o. daily Reason for continued inpatient stay Substantial Risk for: inability to function, rapid decompensation and med/psych decompensation Time Spent With Patient Time: Total time managing care of this patient today __20__ minutes.
[2023-03-28 20:30] VITALS: BP 142/73; PULSE 82; RESP 18; TEMP 36.2; O2SAT 95
[2023-03-28] MEDS: Mirtazapine 15 MG TABLET PO (20:37)
[2023-03-28] MEDS: Melatonin 3 MG TABLET 9 MG PO (20:38)
[2023-03-28] MEDS: LORazepam 1 MG TABLET PO (20:38)
[2023-03-29 07:55] VITALS: BP 122/61; PULSE 77; RESP 18; TEMP 36.4; O2SAT 96
[2023-03-29] MEDS: oxyBUTYnin chloride ER 5 MG TAB.ER.24 10 MG PO (08:19)
[2023-03-29] MEDS: risperiDONE 0.25 MG TABLET 0.5 MG PO (08:19)
[2023-03-29] MEDS: DULoxetine HCl 60 MG CAPSULE.DR PO (08:20)
[2023-03-29] MEDS: LORazepam 0.5 MG TABLET PO ×2 (08:20→13:34)
[2023-03-29] MEDS: Gabapentin 300 MG CAPSULE PO ×3 (08:20→20:30)
--- NOTE | 2023-03-29 13:10 | P.PNPSI_ITS ---
Subjective Subjective Date of Service: 03/29/23 Reason For Visit: F4.1 General anxiety/MDD recurrent Subjective Notes: Conditional Voluntary Interim History: The nursing staff reported the patient has spent most of the time in his room not interacting. He slept well last night. On interview he stated he is feeling worse his very anxious and traumatic stressed out but he could not verbalize stress staff to what. I will change his Risperdal to Seroquel to target anxiety. Mental Status Exam Mental Status Exam Patient Appearance: Well Grooomed and Appropriate Patient Orientation: Person and Situation Level of Consciousness: Awake and Appropriate Patient Behavior: Guarded and Passive Mood Description: Withdrawn Affect Description: Constricted Patient Cognition Impaired: Yes Ability to Follow Directions: Good Speech Pattern: Clear Hallucinations: None Delusions: Not Present Thought Process: Linear Thought Content: positive for [place] and positive for Poverty of Content Judgement: Fair Diagnostics Vital Signs (24Hr): Vital Signs - 24 hr 03/28/23 20:30 03/29/23 07:55 Temperature 97.2 F 97.6 F Pulse Rate 82 77 Respiratory Rate 18 18 Blood Pressure 142/73 H 122/61 Pulse Oximetry 95 96 Oxygen Delivery Method Room Air Room Air BMI result Body Mass Index 22.2 Medications Medications Current Medications Acetaminophen (Acetaminophen 325 Mg Tablet) 650 mg PO Q6H PRN PRN Reason: Headache/Pain Mild Scale (1-3) Last Admin: 03/26/23 20:18 Dose: 650 mg Al Hydroxide/Mg Hydroxide (Magnesium Hydrox/Alum Hydrox 30 Ml Oral.Susp) 30 ml PO Q6H PRN PRN Reason: Heartburn/Nausea Duloxetine HCl (Duloxetine Hcl 60 Mg Capsule.) 60 mg PO DAILY [facility] Last Admin: 03/29/23 08:20 Dose: 60 mg Gabapentin (Gabapentin 300 Mg Capsule) 300 mg PO TID [facility] Last Admin: 03/29/23 08:20 Dose: 300 mg Lorazepam (Lorazepam 1 Mg Tablet) 1 mg PO BEDTIME [facility] Last Admin: 03/28/23 20:38 Dose: 1 mg Lorazepam (Lorazepam 0.5 Mg Tablet) 0.5 mg PO BID@0830,1330 [facility] Last Admin: 03/29/23 08:20 Dose: 0.5 mg Magnesium Hydroxide (Milk Of Magnesia 30 Ml Oral.Susp) 30 ml PO DAILY PRN PRN Reason: Constipation Last Admin: 03/26/23 09:12 Dose: 30 ml Melatonin (Melatonin 3 Mg Tablet) 9 mg PO BEDTIME PRN PRN Reason: insomnia Last Admin: 03/28/23 20:38 Dose: 9 mg Mirtazapine (Mirtazapine 15 Mg Tablet) 15 mg PO BEDTIME [facility] Last Admin: 03/28/23 20:37 Dose: 15 mg Nicotine Polacrilex (Nicotine Polacrilex 2 Mg Gum) 4 mg BUCCAL Q2H PRN PRN Reason: Nicotine Cravings Oxybutynin Chloride (Oxybutynin Chloride Er 5 Mg Tab.Er.24) 10 mg PO DAILY [facility] Last Admin: 03/29/23 08:19 Dose: 10 mg Risperidone (Risperidone 0.25 Mg Tablet) 0.5 mg PO BID [facility] Last Admin: 03/29/23 08:19 Dose: 0.5 mg Risperidone (Risperidone 0.5 Mg Tablet) 0.5 mg PO BID PRN PRN Reason: Anxiety Allergies Allergies Allergy/AdvReac Type Severity Reaction Status Date / Time No Known Allergies Allergy Verified 03/21/23 18:13 Assessment & Plan Assessment & Plan (1) Major depressive disorder, recurrent episode: Status: Acute Code(s): F33.9 - Major depressive disorder, recurrent, unspecified Assessment and Plan: 03/25: change ativan to 0.5 mg bid and 1 mg nightly standing dose (2) Benzodiazepine dependence: Status: Acute Code(s): F13.20 - Sedative, hypnotic or anxiolytic dependence, uncomplicated Plan The patient is an elderly male, , with a prior history of major depressive disorder who probably is dependent to benzodiazepines at this moment, admitted for suicidal ideation in the context of running out of his lorazepam. 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 Plan 1. Gather collateral information. 2. Continue with Ativan 1 mg p.o. b.i.d. p.r.n. anxiety. The patient is fully aware that no acid but is highly addictive and he should be using sparingly. 3. The patient reported that he was on Remeron in the past we will started tonight. 4. Continue with medical workout. 5. Reassessment with results. 6. 15 minute checks since the patient is able to contract for safety in the facility. 7. Increase gabapentin up to 300 mg t.i.d. on March 27 to target anxiety. 8. Increased Cymbalta to 60 mg p.o. daily on March. 9. Discontinue Risperdal and start Seroquel 25 p.o. t.i.d. to target anxiety Reason for continued inpatient stay Substantial Risk for: inability to function, rapid decompensation and med/psych decompensation Time Spent With Patient Time: Total time managing care of this patient today __20__ minutes.
[2023-03-29] MEDS: QUEtiapine Fumarate 25 MG TABLET PO ×2 (15:05→20:30)
[2023-03-29 20:00] VITALS: BP 122/66; PULSE 76; RESP 18; TEMP 36.8; O2SAT 97
[2023-03-29] MEDS: Mirtazapine 15 MG TABLET PO (20:30)
[2023-03-29] MEDS: LORazepam 1 MG TABLET PO (20:30)
[2023-03-29] MEDS: Melatonin 3 MG TABLET 9 MG PO (20:42)
[2023-03-30 08:35] VITALS: BP 116/65; PULSE 76; RESP 18; TEMP 36.1; O2SAT 96
[2023-03-30] MEDS: QUEtiapine Fumarate 25 MG TABLET PO (09:13)
[2023-03-30] MEDS: LORazepam 0.5 MG TABLET PO ×2 (09:13→12:59)
[2023-03-30] MEDS: DULoxetine HCl 60 MG CAPSULE.DR PO (09:13)
[2023-03-30] MEDS: Gabapentin 300 MG CAPSULE PO ×3 (09:14→20:05)
[2023-03-30] MEDS: oxyBUTYnin chloride ER 5 MG TAB.ER.24 10 MG PO (09:14)
[2023-03-30 13:04] VITALS: BMI 23.3
--- NOTE | 2023-03-30 13:40 | HO.PSYCHPN ---
Subjective Subjective Date of Service: 03/30/23 Reason For Visit: F4.1 General anxiety/MDD recurrent Subjective Notes: Conditional Voluntary Interim History: The nursing staff reported the patient stays in his room most of the day, asking for p.r.n. Ativan all the time. He has not engage in any activities in the unit. On interview the patient reported that he is more depressed but he is able to put up to get the air her redirected. He agreed to increase Seroquel up to 50 mg p.o. t.i.d.. Mental Status Exam Mental Status Exam Patient Appearance: Well Grooomed and Appropriate Patient Orientation: Person and Situation Level of Consciousness: Awake and Appropriate Patient Behavior: Guarded and Passive Mood Description: Withdrawn Affect Description: Constricted Patient Cognition Impaired: Yes Ability to Follow Directions: Good Speech Pattern: Clear Hallucinations: None Delusions: Not Present Thought Process: Linear Thought Content: positive for [place] Judgement: Fair Diagnostics Vital Signs (24Hr): Vital Signs - 24 hr 03/29/23 20:00 03/30/23 08:35 Temperature 98.2 F 96.9 F Pulse Rate 76 76 Respiratory Rate 18 18 Blood Pressure 122/66 116/65 Pulse Oximetry 97 96 Oxygen Delivery Method Room Air Room Air BMI result Body Mass Index 23.3 Medications Medications Current Medications Acetaminophen (Acetaminophen 325 Mg Tablet) 650 mg PO Q6H PRN PRN Reason: Headache/Pain Mild Scale (1-3) Last Admin: 03/26/23 20:18 Dose: 650 mg Al Hydroxide/Mg Hydroxide (Magnesium Hydrox/Alum Hydrox 30 Ml Oral.Susp) 30 ml PO Q6H PRN PRN Reason: Heartburn/Nausea Duloxetine HCl (Duloxetine Hcl 60 Mg Capsule.Dr) 60 mg PO DAILY [facility] Last Admin: 03/30/23 09:13 Dose: 60 mg Gabapentin (Gabapentin 300 Mg Capsule) 300 mg PO TID [facility] Last Admin: 03/30/23 09:14 Dose: 300 mg Lorazepam (Lorazepam 1 Mg Tablet) 1 mg PO BEDTIME [facility] Last Admin: 03/29/23 20:30 Dose: 1 mg Lorazepam (Lorazepam 0.5 Mg Tablet) 0.5 mg PO BID@0830,1330 [facility] Last Admin: 03/30/23 12:59 Dose: 0.5 mg Magnesium Hydroxide (Milk Of Magnesia 30 Ml Oral.Susp) 30 ml PO DAILY PRN PRN Reason: Constipation Last Admin: 03/26/23 09:12 Dose: 30 ml Melatonin (Melatonin 3 Mg Tablet) 9 mg PO BEDTIME PRN PRN Reason: insomnia Last Admin: 03/29/23 20:42 Dose: 9 mg Mirtazapine (Mirtazapine 15 Mg Tablet) 15 mg PO BEDTIME [facility] Last Admin: 03/29/23 20:30 Dose: 15 mg Nicotine Polacrilex (Nicotine Polacrilex 2 Mg Gum) 4 mg BUCCAL Q2H PRN PRN Reason: Nicotine Cravings Oxybutynin Chloride (Oxybutynin Chloride Er 5 Mg Tab.Er.24) 10 mg PO DAILY [facility] Last Admin: 03/30/23 09:14 Dose: 10 mg Quetiapine Fumarate (Quetiapine Fumarate 25 Mg Tablet) 25 mg PO BID PRN PRN Reason: Anxiety Quetiapine Fumarate (Quetiapine Fumarate 50 Mg Tablet) 50 mg PO TID [facility] Allergies Allergies Allergy/AdvReac Type Severity Reaction Status Date / Time No Known Allergies Allergy Verified 03/21/23 18:13 Assessment & Plan Assessment & Plan (1) Major depressive disorder, recurrent episode: Status: Acute Code(s): F33.9 - Major depressive disorder, recurrent, unspecified Assessment and Plan: 03/25: change ativan to 0.5 mg bid and 1 mg nightly standing dose (2) Benzodiazepine dependence: Status: Acute Code(s): F13.20 - Sedative, hypnotic or anxiolytic dependence, uncomplicated Plan The patient is an elderly male, , with a prior history of major depressive disorder who probably is dependent to benzodiazepines at this moment, admitted for suicidal ideation in the context of running out of his lorazepam. 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 Plan 1. Gather collateral information. 2. Continue with Ativan 1 mg p.o. b.i.d. p.r.n. anxiety. The patient is fully aware that no acid but is highly addictive and he should be using sparingly. 3. The patient reported that he was on Remeron in the past we will started tonight. 4. Continue with medical workout. 5. Reassessment with results. 6. 15 minute checks since the patient is able to contract for safety in the facility. 7. Increase gabapentin up to 300 mg t.i.d. on March 27 to target anxiety. 8. Increased Cymbalta to 60 mg p.o. daily on March. 9. Discontinue Risperdal and start Seroquel 25 p.o. t.i.d. to target anxiety, it was increased up to 50 p.o. t.i.d. on March 30. Reason for continued inpatient stay Substantial Risk for: inability to function, rapid decompensation and med/psych decompensation Time Spent With Patient Time: Total time managing care of this patient today __20__ minutes.
[2023-03-30] MEDS: QUEtiapine Fumarate 50 MG TABLET PO ×2 (14:49→20:05)
[2023-03-30 20:03] VITALS: BP 132/63; PULSE 83; RESP 18; TEMP 36.9; O2SAT 95
[2023-03-30] MEDS: Melatonin 3 MG TABLET 9 MG PO (20:05)
[2023-03-30] MEDS: Mirtazapine 15 MG TABLET PO (20:05)
[2023-03-30] MEDS: LORazepam 1 MG TABLET PO (20:05)
[2023-03-31 08:00] VITALS: BP 163/63; PULSE 79; RESP 20; TEMP 36.8; O2SAT 95
[2023-03-31] MEDS: oxyBUTYnin chloride ER 5 MG TAB.ER.24 10 MG PO (08:49)
[2023-03-31] MEDS: QUEtiapine Fumarate 50 MG TABLET PO (08:50)
[2023-03-31] MEDS: LORazepam 0.5 MG TABLET PO ×2 (08:50→13:17)
[2023-03-31] MEDS: Gabapentin 300 MG CAPSULE PO ×3 (08:50→21:11)
[2023-03-31] MEDS: DULoxetine HCl 60 MG CAPSULE.DR PO (08:50)
[2023-03-31] MEDS: QUEtiapine Fumarate 100 MG TABLET PO ×2 (14:45→21:12)
--- NOTE | 2023-03-31 15:23 | P.PNPSI_ITS ---
Subjective Subjective Date of Service: 03/31/23 Reason For Visit: F4.1 General anxiety/MDD recurrent Subjective Notes: Conditional Voluntary Interim History: The nursing staff reported the patient has been pleasant and appropriate but reports that he is feeling worse. On interview he states that he is extremely anxious and he agreed to increase Seroquel up to 100 mg p.o. t.i.d.. Also he agreed to add a low dose of prazosin. Mental Status Exam Mental Status Exam Patient Appearance: Appropriate Patient Orientation: Person and Situation Level of Consciousness: Awake and Appropriate Patient Behavior: Guarded and Passive Mood Description: Withdrawn Affect Description: Constricted Patient Cognition Impaired: Yes Ability to Follow Directions: Fair Speech Pattern: Clear Hallucinations: None Delusions: Paranoid Ideation Thought Process: Distracted and Linear Thought Content: positive for [place], positive for Obsessional Thoughts and positive for [place] Oriented Judgement: Fair Diagnostics Vital Signs (24Hr): Vital Signs - 24 hr 03/30/23 20:03 03/31/23 08:00 Temperature 98.5 F 98.2 F Pulse Rate 83 79 Respiratory Rate 18 20 Blood Pressure 132/63 163/63 H Pulse Oximetry 95 95 Oxygen Delivery Method Room Air Room Air BMI result Body Mass Index 23.3 Medications Medications Current Medications Acetaminophen (Acetaminophen 325 Mg Tablet) 650 mg PO Q6H PRN PRN Reason: Headache/Pain Mild Scale (1-3) Last Admin: 03/26/23 20:18 Dose: 650 mg Al Hydroxide/Mg Hydroxide (Magnesium Hydrox/Alum Hydrox 30 Ml Oral.Susp) 30 ml PO Q6H PRN PRN Reason: Heartburn/Nausea Duloxetine HCl (Duloxetine Hcl 60 Mg Capsule.) 60 mg PO DAILY [facility] Last Admin: 03/31/23 08:50 Dose: 60 mg Gabapentin (Gabapentin 300 Mg Capsule) 300 mg PO TID [facility] Last Admin: 03/31/23 14:45 Dose: 300 mg Lorazepam (Lorazepam 1 Mg Tablet) 1 mg PO BEDTIME [facility] Last Admin: 03/30/23 20:05 Dose: 1 mg Lorazepam (Lorazepam 0.5 Mg Tablet) 0.5 mg PO BID@0830,1330 [facility] Last Admin: 03/31/23 13:17 Dose: 0.5 mg Magnesium Hydroxide (Milk Of Magnesia 30 Ml Oral.Susp) 30 ml PO DAILY PRN PRN Reason: Constipation Last Admin: 03/26/23 09:12 Dose: 30 ml Melatonin (Melatonin 3 Mg Tablet) 9 mg PO BEDTIME PRN PRN Reason: insomnia Last Admin: 03/30/23 20:05 Dose: 9 mg Mirtazapine (Mirtazapine 15 Mg Tablet) 15 mg PO BEDTIME [facility] Last Admin: 03/30/23 20:05 Dose: 15 mg Nicotine Polacrilex (Nicotine Polacrilex 2 Mg Gum) 4 mg BUCCAL Q2H PRN PRN Reason: Nicotine Cravings Oxybutynin Chloride (Oxybutynin Chloride Er 5 Mg Tab.Er.24) 10 mg PO DAILY [facility] Last Admin: 03/31/23 08:49 Dose: 10 mg Prazosin HCl (Prazosin Hcl 1 Mg Capsule) 2 mg PO BEDTIME [facility]; Protocol Quetiapine Fumarate (Quetiapine Fumarate 25 Mg Tablet) 25 mg PO BID PRN PRN Reason: Anxiety Quetiapine Fumarate (Quetiapine Fumarate 100 Mg Tablet) 100 mg PO TID [facility] Last Admin: 03/31/23 14:45 Dose: 100 mg Allergies Allergies Allergy/AdvReac Type Severity Reaction Status Date / Time No Known Allergies Allergy Verified 03/21/23 18:13 Assessment & Plan Assessment & Plan (1) Major depressive disorder, recurrent episode: Status: Acute Code(s): F33.9 - Major depressive disorder, recurrent, unspecified Assessment and Plan: 03/25: change ativan to 0.5 mg bid and 1 mg nightly standing dose (2) Benzodiazepine dependence: Status: Acute Code(s): F13.20 - Sedative, hypnotic or anxiolytic dependence, uncomplicated Plan The patient is an elderly male, , with a prior history of major depressive disorder who probably is dependent to benzodiazepines at this moment, admitted for suicidal ideation in the context of running out of his lorazepam. 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 Plan 1. Gather collateral information. 2. Continue with Ativan 1 mg p.o. b.i.d. p.r.n. anxiety. The patient is fully aware that no acid but is highly addictive and he should be using sparingly. 3. The patient reported that he was on Remeron in the past we will started tonight. 4. Continue with medical workout. 5. Reassessment with results. 6. 15 minute checks since the patient is able to contract for safety in the facility. 7. Increase gabapentin up to 300 mg t.i.d. on March 27 to target anxiety. 8. Increased Cymbalta to 60 mg p.o. daily. 9. Discontinue Risperdal and start Seroquel 25 p.o. t.i.d. to target anxiety, it was increased up to 50 p.o. t.i.d. on March 30. On March 31 we increase Seroquel up to 100 mg p.o. t.i.d. to target anxiety Reason for continued inpatient stay Substantial Risk for: inability to function, rapid decompensation and med/psych decompensation Time Spent With Patient Time: Total time managing care of this patient today __20__ minutes.
[2023-03-31 18:00] VITALS: BP 144/70; PULSE 85; RESP 17; TEMP 37.1; O2SAT 95
[2023-03-31] MEDS: Mirtazapine 15 MG TABLET PO (21:11)
[2023-03-31] MEDS: LORazepam 1 MG TABLET PO (21:11)
[2023-03-31] MEDS: Prazosin HCL 1 MG CAPSULE 2 MG PO (21:11)
[2023-03-31] MEDS: Melatonin 3 MG TABLET 9 MG PO (21:12)
[2023-04-01 08:35] VITALS: BP 94/59; PULSE 77; RESP 20; TEMP 36.2; O2SAT 96
[2023-04-01] MEDS: QUEtiapine Fumarate 100 MG TABLET PO ×3 (08:35→20:50)
[2023-04-01] MEDS: LORazepam 0.5 MG TABLET PO ×2 (08:35→14:50)
[2023-04-01] MEDS: Gabapentin 300 MG CAPSULE PO ×3 (08:35→20:48)
[2023-04-01] MEDS: DULoxetine HCl 60 MG CAPSULE.DR PO (08:36)
[2023-04-01] MEDS: oxyBUTYnin chloride ER 5 MG TAB.ER.24 10 MG PO (08:36)
--- NOTE | 2023-04-01 09:57 | HO.PSYCHPN ---
Subjective Subjective Date of Service: 04/01/23 Reason For Visit: F4.1 General anxiety/MDD recurrent Subjective Notes: Conditional Voluntary Interim History: Pt continues to present as very dysphoric, anxious, states he feels awful. He reports feeling very overwhelmed with stress, unable to elaborate as to what stressors. He reports severe anxiety, on multiple medications, seroquel recently increased. He denies SI/HI. Pt mostly in his room, not interacting with peers. Catastrophic outlook and declines to get up of bed. Per nursing, pt slept through the night. Medication Compliance: Yes Review of Systems Review of Systems Increased depression and anxiety Occasional lightheadedness and dizziness Occasional trouble breathing Occasional nonproductive cough Constipation Denies chest pain/pressure, palpitations No fever, chills, nausea, vomiting, abdominal pain Yes all other systems are reviewed and are negative Mental Status Exam Mental Status Exam Patient Appearance: Well Grooomed and Appropriate Patient Orientation: Person and Situation Level of Consciousness: Awake and Appropriate Patient Behavior: Guarded and Passive Behavior Comments: Lying in bed much of the day. Mood Description: Withdrawn Affect Description: Constricted Patient Cognition Impaired: Yes Ability to Follow Directions: Good Speech Pattern: Clear Memory Description: Intact Diagnostics Vital Signs (24Hr): Vital Signs - 24 hr 03/31/23 18:00 04/01/23 08:35 Temperature 98.7 F 97.2 F Pulse Rate 85 77 Respiratory Rate 17 20 Blood Pressure 144/70 H 94/59 L Pulse Oximetry 95 96 Oxygen Delivery Method Room Air Room Air BMI result Body Mass Index 23.3 Medications Medications Current Medications Acetaminophen (Acetaminophen 325 Mg Tablet) 650 mg PO Q6H PRN PRN Reason: Headache/Pain Mild Scale (1-3) Last Admin: 03/26/23 20:18 Dose: 650 mg Al Hydroxide/Mg Hydroxide (Magnesium Hydrox/Alum Hydrox 30 Ml Oral.Susp) 30 ml PO Q6H PRN PRN Reason: Heartburn/Nausea Duloxetine HCl (Duloxetine Hcl 60 Mg Capsule.) 60 mg PO DAILY [facility] Last Admin: 04/01/23 08:36 Dose: 60 mg Gabapentin (Gabapentin 300 Mg Capsule) 300 mg PO TID [facility] Last Admin: 04/01/23 08:35 Dose: 300 mg Lorazepam (Lorazepam 1 Mg Tablet) 1 mg PO BEDTIME [facility] Last Admin: 03/31/23 21:11 Dose: 1 mg Lorazepam (Lorazepam 0.5 Mg Tablet) 0.5 mg PO BID@0830,1330 [facility] Last Admin: 04/01/23 08:35 Dose: 0.5 mg Magnesium Hydroxide (Milk Of Magnesia 30 Ml Oral.Susp) 30 ml PO DAILY PRN PRN Reason: Constipation Last Admin: 03/26/23 09:12 Dose: 30 ml Melatonin (Melatonin 3 Mg Tablet) 9 mg PO BEDTIME PRN PRN Reason: insomnia Last Admin: 03/31/23 21:12 Dose: 9 mg Mirtazapine (Mirtazapine 15 Mg Tablet) 15 mg PO BEDTIME [facility] Last Admin: 03/31/23 21:11 Dose: 15 mg Nicotine Polacrilex (Nicotine Polacrilex 2 Mg Gum) 4 mg BUCCAL Q2H PRN PRN Reason: Nicotine Cravings Oxybutynin Chloride (Oxybutynin Chloride Er 5 Mg Tab.Er.24) 10 mg PO DAILY [facility] Last Admin: 04/01/23 08:36 Dose: 10 mg Prazosin HCl (Prazosin Hcl 1 Mg Capsule) 2 mg PO BEDTIME [facility]; Protocol Last Admin: 03/31/23 21:11 Dose: 2 mg Quetiapine Fumarate (Quetiapine Fumarate 25 Mg Tablet) 25 mg PO BID PRN PRN Reason: Anxiety Quetiapine Fumarate (Quetiapine Fumarate 100 Mg Tablet) 100 mg PO TID [facility] Last Admin: 04/01/23 08:35 Dose: 100 mg Allergies Allergies Allergy/AdvReac Type Severity Reaction Status Date / Time No Known Allergies Allergy Verified 03/21/23 18:13 Assessment & Plan Assessment & Plan (1) Major depressive disorder, recurrent episode: Status: Acute Code(s): F33.9 - Major depressive disorder, recurrent, unspecified Assessment and Plan: 03/25: change ativan to 0.5 mg bid and 1 mg nightly standing dose (2) Benzodiazepine dependence: Status: Acute Code(s): F13.20 - Sedative, hypnotic or anxiolytic dependence, uncomplicated Plan The patient is an elderly male, , with a prior history of major depressive disorder who probably is dependent to benzodiazepines at this moment, admitted for suicidal ideation in the context of running out of his lorazepam. 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 Plan 1. Gather collateral information. 2. Continue with Ativan 1 mg p.o. b.i.d. p.r.n. anxiety. The patient is fully aware that no acid but is highly addictive and he should be using sparingly. 3. The patient reported that he was on Remeron in the past we will started tonight. 4. Continue with medical workout. 5. Reassessment with results. 6. 15 minute checks since the patient is able to contract for safety in the facility. 7. Increase gabapentin up to 300 mg t.i.d. on March 27 to target anxiety. 8. Increased Cymbalta to 60 mg p.o. daily on March. 9. Discontinue Risperdal and start Seroquel 25 p.o. t.i.d. to target anxiety, it was increased up to 50 p.o. t.i.d. on March 30. 04/01 continue tx. Reason for continued inpatient stay Substantial Risk for: inability to function Time Spent With Patient Time: Total time managing care of this patient today ____ minutes.
[2023-04-01 18:00] VITALS: BP 126/66; PULSE 71; RESP 20; TEMP 37.1; O2SAT 93
[2023-04-01] MEDS: LORazepam 1 MG TABLET PO (20:48)
[2023-04-01] MEDS: Prazosin HCL 1 MG CAPSULE 2 MG PO (20:49)
[2023-04-01] MEDS: Mirtazapine 15 MG TABLET PO (20:49)
[2023-04-01] MEDS: Melatonin 3 MG TABLET 9 MG PO (20:49)
[2023-04-02 08:45] VITALS: BP 113/66; PULSE 80; RESP 20; TEMP 36.4; O2SAT 96
[2023-04-02] MEDS: LORazepam 0.5 MG TABLET PO ×2 (08:47→13:10)
[2023-04-02] MEDS: DULoxetine HCl 60 MG CAPSULE.DR PO (08:47)
[2023-04-02] MEDS: Gabapentin 300 MG CAPSULE PO ×3 (08:48→21:02)
[2023-04-02] MEDS: QUEtiapine Fumarate 100 MG TABLET PO ×3 (08:48→21:02)
[2023-04-02] MEDS: oxyBUTYnin chloride ER 5 MG TAB.ER.24 10 MG PO (08:48)
--- NOTE | 2023-04-02 14:18 | HO.PSYCHPN ---
Subjective Subjective Date of Service: 04/02/23 Reason For Visit: F4.1 General anxiety/MDD recurrent Subjective Notes: Conditional Voluntary Interim History: Pt continues to present as very dysphoric, anxious. He continues to describe mood as awful. He reports feeling very overwhelmed with stress, unable to elaborate as to what stressors. He reports severe anxiety, on multiple medications, seroquel recently increased. He denies SI/HI. Pt mostly in his room, not interacting with peers. Catastrophic outlook and declines to get up of bed. Per nursing, pt slept through the night. Review of Systems Review of Systems Increased depression and anxiety Occasional lightheadedness and dizziness Occasional trouble breathing Occasional nonproductive cough Constipation Denies chest pain/pressure, palpitations No fever, chills, nausea, vomiting, abdominal pain Yes all other systems are reviewed and are negative Mental Status Exam Mental Status Exam Patient Appearance: Well Grooomed and Appropriate Patient Orientation: Person and Situation Level of Consciousness: Awake and Appropriate Patient Behavior: Guarded and Passive Behavior Comments: Lying in bed much of the day. Mood Description: Withdrawn Affect Description: Constricted Patient Cognition Impaired: Yes Ability to Follow Directions: Good Speech Pattern: Clear Memory Description: Intact Diagnostics Vital Signs (24Hr): Vital Signs - 24 hr 04/01/23 18:00 04/02/23 08:45 Temperature 98.8 F 97.5 F Pulse Rate 71 80 Respiratory Rate 20 20 Blood Pressure 126/66 113/66 Pulse Oximetry 93 96 Oxygen Delivery Method Room Air Room Air BMI result Body Mass Index 23.3 Medications Medications Current Medications Acetaminophen (Acetaminophen 325 Mg Tablet) 650 mg PO Q6H PRN PRN Reason: Headache/Pain Mild Scale (1-3) Last Admin: 03/26/23 20:18 Dose: 650 mg Al Hydroxide/Mg Hydroxide (Magnesium Hydrox/Alum Hydrox 30 Ml Oral.Susp) 30 ml PO Q6H PRN PRN Reason: Heartburn/Nausea Duloxetine HCl (Duloxetine Hcl 60 Mg Capsule.) 60 mg PO DAILY [facility] Last Admin: 04/02/23 08:47 Dose: 60 mg Gabapentin (Gabapentin 300 Mg Capsule) 300 mg PO TID [facility] Last Admin: 04/02/23 08:48 Dose: 300 mg Lorazepam (Lorazepam 1 Mg Tablet) 1 mg PO BEDTIME [facility] Last Admin: 04/01/23 20:48 Dose: 1 mg Lorazepam (Lorazepam 0.5 Mg Tablet) 0.5 mg PO BID@0830,1330 [facility] Last Admin: 04/02/23 13:10 Dose: 0.5 mg Magnesium Hydroxide (Milk Of Magnesia 30 Ml Oral.Susp) 30 ml PO DAILY PRN PRN Reason: Constipation Last Admin: 03/26/23 09:12 Dose: 30 ml Melatonin (Melatonin 3 Mg Tablet) 9 mg PO BEDTIME PRN PRN Reason: insomnia Last Admin: 04/01/23 20:49 Dose: 9 mg Mirtazapine (Mirtazapine 15 Mg Tablet) 15 mg PO BEDTIME [facility] Last Admin: 04/01/23 20:49 Dose: 15 mg Nicotine Polacrilex (Nicotine Polacrilex 2 Mg Gum) 4 mg BUCCAL Q2H PRN PRN Reason: Nicotine Cravings Oxybutynin Chloride (Oxybutynin Chloride Er 5 Mg Tab.Er.24) 10 mg PO DAILY [facility] Last Admin: 04/02/23 08:48 Dose: 10 mg Prazosin HCl (Prazosin Hcl 1 Mg Capsule) 2 mg PO BEDTIME [facility]; Protocol Last Admin: 04/01/23 20:49 Dose: 2 mg Quetiapine Fumarate (Quetiapine Fumarate 25 Mg Tablet) 25 mg PO BID PRN PRN Reason: Anxiety Quetiapine Fumarate (Quetiapine Fumarate 100 Mg Tablet) 100 mg PO TID [facility] Last Admin: 04/02/23 08:48 Dose: 100 mg Allergies Allergies Allergy/AdvReac Type Severity Reaction Status Date / Time No Known Allergies Allergy Verified 03/21/23 18:13 Assessment & Plan Assessment & Plan (1) Major depressive disorder, recurrent episode: Status: Acute Code(s): F33.9 - Major depressive disorder, recurrent, unspecified Assessment and Plan: 03/25: change ativan to 0.5 mg bid and 1 mg nightly standing dose (2) Benzodiazepine dependence: Status: Acute Code(s): F13.20 - Sedative, hypnotic or anxiolytic dependence, uncomplicated Plan The patient is an elderly male, , with a prior history of major depressive disorder who probably is dependent to benzodiazepines at this moment, admitted for suicidal ideation in the context of running out of his lorazepam. 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 Plan 1. Gather collateral information. 2. Continue with Ativan 1 mg p.o. b.i.d. p.r.n. anxiety. The patient is fully aware that no acid but is highly addictive and he should be using sparingly. 3. The patient reported that he was on Remeron in the past we will started tonight. 4. Continue with medical workout. 5. Reassessment with results. 6. 15 minute checks since the patient is able to contract for safety in the facility. 7. Increase gabapentin up to 300 mg t.i.d. on March 27 to target anxiety. 8. Increased Cymbalta to 60 mg p.o. daily on March. 9. Discontinue Risperdal and start Seroquel 25 p.o. t.i.d. to target anxiety, it was increased up to 50 p.o. t.i.d. on March 30. 04/01 continue tx. continue tx. Reason for continued inpatient stay Substantial Risk for: inability to function Time Spent With Patient Time: Total time managing care of this patient today ____ minutes.
[2023-04-02 18:00] VITALS: BP 108/57; PULSE 82; RESP 18; TEMP 36.6; O2SAT 94
[2023-04-02] MEDS: Ibuprofen 600 MG TABLET PO (18:45)
[2023-04-02] MEDS: Prazosin HCL 1 MG CAPSULE 2 MG PO (21:01)
[2023-04-02] MEDS: LORazepam 1 MG TABLET PO (21:02)
[2023-04-02] MEDS: Mirtazapine 15 MG TABLET PO (21:02)
[2023-04-02] MEDS: Melatonin 3 MG TABLET 9 MG PO (21:03)
[2023-04-03] MEDS: LORazepam 0.5 MG TABLET PO ×2 (08:27→13:43)
[2023-04-03] MEDS: oxyBUTYnin chloride ER 5 MG TAB.ER.24 10 MG PO (08:28)
[2023-04-03] MEDS: QUEtiapine Fumarate 100 MG TABLET PO ×3 (08:28→20:58)
[2023-04-03] MEDS: DULoxetine HCl 60 MG CAPSULE.DR PO ×2 (08:28→20:57)
[2023-04-03] MEDS: Gabapentin 300 MG CAPSULE PO ×3 (08:28→20:55)
[2023-04-03] MEDS: Milk of Magnesia 30 ML ORAL.SUSP PO (08:28)
[2023-04-03 08:30] VITALS: BP 99/60; PULSE 81; RESP 18; TEMP 36.3; O2SAT 95
--- NOTE | 2023-04-03 11:01 | P.PNPSI_ITS ---
Subjective Subjective Date of Service: 04/03/23 Reason For Visit: F4.1 General anxiety/MDD recurrent Subjective Notes: Conditional Voluntary Interim History: The nursing staff reported the patient has tried to put a goal every day of getting to his himself. Still very depressed stating most of the time on his room. He has been medication compliant. On interview the patient reports that he is feeling depressed so I explained him that we are increasing his Cymbalta to 60 mg p.o. b.i.d. to target anxiety and depression. He complained of constipation and we are adding Senna and Colace. Mental Status Exam Mental Status Exam Patient Appearance: Well Grooomed and Appropriate Patient Orientation: Person and Situation Level of Consciousness: Awake and Appropriate Patient Behavior: Guarded and Passive Mood Description: Withdrawn Affect Description: Constricted Patient Cognition Impaired: Yes Ability to Follow Directions: Good Speech Pattern: Clear Hallucinations: None Delusions: Not Present Thought Process: Distracted and Slowed Thinking Thought Content: positive for [place] and positive for Circumstantial Judgement: Fair Diagnostics Vital Signs (24Hr): Vital Signs - 24 hr 04/02/23 18:00 04/03/23 08:30 Temperature 97.9 F 97.3 F Pulse Rate 82 81 Respiratory Rate 18 18 Blood Pressure 108/57 L 99/60 Pulse Oximetry 94 95 Oxygen Delivery Method Room Air Room Air BMI result Body Mass Index 23.3 Medications Medications Current Medications Acetaminophen (Acetaminophen 325 Mg Tablet) 650 mg PO Q6H PRN PRN Reason: Headache/Pain Mild Scale (1-3) Last Admin: 03/26/23 20:18 Dose: 650 mg Al Hydroxide/Mg Hydroxide (Magnesium Hydrox/Alum Hydrox 30 Ml Oral.Susp) 30 ml PO Q6H PRN PRN Reason: Heartburn/Nausea Duloxetine HCl (Duloxetine Hcl 60 Mg Capsule.Dr) 60 mg PO BID [facility] Gabapentin (Gabapentin 300 Mg Capsule) 300 mg PO TID [facility] Last Admin: 04/03/23 08:28 Dose: 300 mg Ibuprofen (Ibuprofen 600 Mg Tablet) 600 mg PO Q6H PRN PRN Reason: Pain, Moderate(Pain Scale 4-6) Last Admin: 04/02/23 18:45 Dose: 600 mg Lorazepam (Lorazepam 1 Mg Tablet) 1 mg PO BEDTIME [facility] Last Admin: 04/02/23 21:02 Dose: 1 mg Lorazepam (Lorazepam 0.5 Mg Tablet) 0.5 mg PO BID@0830,1330 [facility] Last Admin: 04/03/23 08:27 Dose: 0.5 mg Magnesium Hydroxide (Milk Of Magnesia 30 Ml Oral.Susp) 30 ml PO DAILY PRN PRN Reason: Constipation Last Admin: 04/03/23 08:28 Dose: 30 ml Melatonin (Melatonin 3 Mg Tablet) 9 mg PO BEDTIME PRN PRN Reason: insomnia Last Admin: 04/02/23 21:03 Dose: 9 mg Mirtazapine (Mirtazapine 15 Mg Tablet) 15 mg PO BEDTIME [facility] Last Admin: 04/02/23 21:02 Dose: 15 mg Nicotine Polacrilex (Nicotine Polacrilex 2 Mg Gum) 4 mg BUCCAL Q2H PRN PRN Reason: Nicotine Cravings Oxybutynin Chloride (Oxybutynin Chloride Er 5 Mg Tab.Er.24) 10 mg PO DAILY [facility] Last Admin: 04/03/23 08:28 Dose: 10 mg Prazosin HCl (Prazosin Hcl 1 Mg Capsule) 2 mg PO BEDTIME [facility]; Protocol Last Admin: 04/02/23 21:01 Dose: 2 mg Quetiapine Fumarate (Quetiapine Fumarate 25 Mg Tablet) 25 mg PO BID PRN PRN Reason: Anxiety Quetiapine Fumarate (Quetiapine Fumarate 100 Mg Tablet) 100 mg PO TID [facility] Last Admin: 04/03/23 08:28 Dose: 100 mg Allergies Allergies Allergy/AdvReac Type Severity Reaction Status Date / Time No Known Allergies Allergy Verified 03/21/23 18:13 Assessment & Plan Assessment & Plan (1) Major depressive disorder, recurrent episode: Status: Acute Code(s): F33.9 - Major depressive disorder, recurrent, unspecified Assessment and Plan: 03/25: change ativan to 0.5 mg bid and 1 mg nightly standing dose (2) Benzodiazepine dependence: Status: Acute Code(s): F13.20 - Sedative, hypnotic or anxiolytic dependence, uncomplicated Plan The patient is an elderly male, , with a prior history of major depressive disorder who probably is dependent to benzodiazepines at this moment, admitted for suicidal ideation in the context of running out of his lorazepam. 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 Plan 1. Gather collateral information. 2. Continue with Ativan 1 mg p.o. b.i.d. p.r.n. anxiety. The patient is fully aware that no acid but is highly addictive and he should be using sparingly. 3. The patient reported that he was on Remeron in the past we will started tonight. 4. Continue with medical workout. 5. Reassessment with results. 6. 15 minute checks since the patient is able to contract for safety in the facility. 7. Increase gabapentin up to 300 mg t.i.d. on March 27 to target anxiety. 8. Increased Cymbalta to 60 mg p.o. daily. Cymbalta has been increased up to 60 mg p.o. b.i.d. on in April 03. 9. Discontinue Risperdal and start Seroquel 25 p.o. t.i.d. to target anxiety, it was increased up to 50 p.o. t.i.d. on March 30. On March 31 we increase Seroquel up to 100 mg p.o. t.i.d. to target anxiety 10. Jasmine and shira added. Reason for continued inpatient stay Substantial Risk for: inability to function, rapid decompensation and med/psych decompensation Time Spent With Patient Time: Total time managing care of this patient today __20__ minutes.
[2023-04-03 18:00] VITALS: BP 142/65; PULSE 96; RESP 18; TEMP 36.3; O2SAT 96
[2023-04-03] MEDS: Prazosin HCL 1 MG CAPSULE 2 MG PO (20:54)
[2023-04-03] MEDS: Sennosides 8.6 MG TABLET PO (20:55)
[2023-04-03] MEDS: Melatonin 3 MG TABLET 9 MG PO (20:56)
[2023-04-03] MEDS: Docusate Sodium 100 MG CAPSULE PO (20:57)
[2023-04-03] MEDS: LORazepam 1 MG TABLET PO (20:58)
[2023-04-03] MEDS: Mirtazapine 15 MG TABLET PO (20:58)
[2023-04-04 08:00] VITALS: BP 123/69; PULSE 87; RESP 20; TEMP 36.4; O2SAT 94
[2023-04-04] MEDS: QUEtiapine Fumarate 100 MG TABLET PO ×2 (08:00→19:02)
[2023-04-04] MEDS: DULoxetine HCl 60 MG CAPSULE.DR PO ×2 (08:00→20:06)
[2023-04-04] MEDS: LORazepam 0.5 MG TABLET PO ×2 (08:00→14:06)
[2023-04-04] MEDS: Gabapentin 300 MG CAPSULE PO ×3 (08:01→20:03)
[2023-04-04] MEDS: oxyBUTYnin chloride ER 5 MG TAB.ER.24 10 MG PO (08:01)
[2023-04-04] MEDS: Docusate Sodium 100 MG CAPSULE PO ×2 (08:01→20:05)
--- NOTE | 2023-04-04 10:19 | P.PNPSI_ITS ---
Subjective Subjective Date of Service: 04/04/23 Reason For Visit: F4.1 General anxiety/MDD recurrent Subjective Notes: Conditional Voluntary Interim History: The nursing staff reported the patient had been compliant with treatment, he reports that his anxious and depressed. He slept well last night but he reports that he was having racing thoughts. The group social worker reported that he has rejected visitors and he is mostly seclusive. Today on interview the the patient reported that he is feeling very anxious unable to provide but is a stressor so we are going to increase a mood stabilizer. He agreed to increase Seroquel up to 200 at night to target racing thoughts. Mental Status Exam Mental Status Exam Patient Appearance: Well Grooomed and Appropriate Patient Orientation: Person and Situation Level of Consciousness: Awake and Appropriate Patient Behavior: Guarded and Passive Mood Description: Withdrawn Affect Description: Constricted Patient Cognition Impaired: Yes Ability to Follow Directions: Good Speech Pattern: Clear Hallucinations: None Delusions: Not Present Thought Process: Racing, Distracted and Evasive Thought Content: positive for [place] and positive for Circumstantial Judgement: Poor Diagnostics Vital Signs (24Hr): Vital Signs - 24 hr 04/03/23 18:00 Temperature 97.3 F Pulse Rate 96 Respiratory Rate 18 Blood Pressure 142/65 H Pulse Oximetry 96 Oxygen Delivery Method Room Air BMI result Body Mass Index 23.3 Medications Medications Current Medications Acetaminophen (Acetaminophen 325 Mg Tablet) 650 mg PO Q6H PRN PRN Reason: Headache/Pain Mild Scale (1-3) Last Admin: 03/26/23 20:18 Dose: 650 mg Al Hydroxide/Mg Hydroxide (Magnesium Hydrox/Alum Hydrox 30 Ml Oral.Susp) 30 ml PO Q6H PRN PRN Reason: Heartburn/Nausea Docusate Sodium (Docusate Sodium 100 Mg Capsule) 100 mg PO BID [facility] Last Admin: 04/04/23 08:01 Dose: 100 mg Duloxetine HCl (Duloxetine Hcl 60 Mg Capsule.Dr) 60 mg PO BID [facility] Last Admin: 04/04/23 08:00 Dose: 60 mg Gabapentin (Gabapentin 300 Mg Capsule) 300 mg PO TID [facility] Last Admin: 04/04/23 08:01 Dose: 300 mg Ibuprofen (Ibuprofen 600 Mg Tablet) 600 mg PO Q6H PRN PRN Reason: Pain, Moderate(Pain Scale 4-6) Last Admin: 04/02/23 18:45 Dose: 600 mg Lorazepam (Lorazepam 1 Mg Tablet) 1 mg PO BEDTIME [facility] Last Admin: 04/03/23 20:58 Dose: 1 mg Lorazepam (Lorazepam 0.5 Mg Tablet) 0.5 mg PO BID@0830,1330 [facility] Last Admin: 04/04/23 08:00 Dose: 0.5 mg Magnesium Hydroxide (Milk Of Magnesia 30 Ml Oral.Susp) 30 ml PO DAILY PRN PRN Reason: Constipation Last Admin: 04/03/23 08:28 Dose: 30 ml Melatonin (Melatonin 3 Mg Tablet) 9 mg PO BEDTIME PRN PRN Reason: insomnia Last Admin: 04/03/23 20:56 Dose: 9 mg Mirtazapine (Mirtazapine 15 Mg Tablet) 15 mg PO BEDTIME [facility] Last Admin: 04/03/23 20:58 Dose: 15 mg Nicotine Polacrilex (Nicotine Polacrilex 2 Mg Gum) 4 mg BUCCAL Q2H PRN PRN Reason: Nicotine Cravings Oxybutynin Chloride (Oxybutynin Chloride Er 5 Mg Tab.Er.24) 10 mg PO DAILY [facility] Last Admin: 04/04/23 08:01 Dose: 10 mg Prazosin HCl (Prazosin Hcl 1 Mg Capsule) 2 mg PO BEDTIME [facility]; Protocol Last Admin: 04/03/23 20:54 Dose: 2 mg Quetiapine Fumarate (Quetiapine Fumarate 25 Mg Tablet) 25 mg PO BID PRN PRN Reason: Anxiety Quetiapine Fumarate (Quetiapine Fumarate 100 Mg Tablet) 100 mg PO BID@0800,1700 [facility] Quetiapine Fumarate (Quetiapine Fumarate 200 Mg Tablet) 200 mg PO BEDTIME [facility] Senna (Sennosides 8.6 Mg Tablet) 8.6 mg PO BEDTIME [facility] Last Admin: 04/03/23 20:55 Dose: 8.6 mg Allergies Allergies Allergy/AdvReac Type Severity Reaction Status Date / Time No Known Allergies Allergy Verified 03/21/23 18:13 Assessment & Plan Assessment & Plan (1) Major depressive disorder, recurrent episode: Status: Acute Code(s): F33.9 - Major depressive disorder, recurrent, unspecified Assessment and Plan: 03/25: change ativan to 0.5 mg bid and 1 mg nightly standing dose (2) Benzodiazepine dependence: Status: Acute Code(s): F13.20 - Sedative, hypnotic or anxiolytic dependence, uncomplicated Plan The patient is an elderly male, , with a prior history of major depressive disorder who probably is dependent to benzodiazepines at this moment, admitted for suicidal ideation in the context of running out of his lorazepam. The patient was assessed by crisis after he called 911 stating that he was suicidal and he was in [employer] with a point of and in a row in a suicidal attempt. Plan 1. Gather collateral information. 2. Continue with Ativan 1 mg p.o. b.i.d. p.r.n. anxiety. The patient is fully aware that no acid but is highly addictive and he should be using sparingly. 3. The patient reported that he was on Remeron in the past we will started tonight. 4. Continue with medical workout. 5. Reassessment with results. 6. 15 minute checks since the patient is able to contract for safety in the facility. 7. Increase gabapentin up to 300 mg t.i.d. on March 27 to target anxiety. 8. Increased Cymbalta to 60 mg p.o. daily. Cymbalta has been increased up to 60 mg p.o. b.i.d. on in April 03. 9. Discontinue Risperdal and start Seroquel 25 p.o. t.i.d. to target anxiety, it was increased up to 50 p.o. t.i.d. on March 30. On March 31 we increase Seroquel up to 100 mg p.o. t.i.d. to target anxiety. On April 04 we increased to Seroquel 100 p.o. b.i.d. and 200 mg p.o. q.h.s.. 10. Senna and colace added on April 03. Reason for continued inpatient stay Substantial Risk for: inability to function, rapid decompensation and med/psych decompensation Time Spent With Patient Time: Total time managing care of this patient today __20__ minutes.
[2023-04-04] MEDS: bisacodyL 5 MG TABLET.DR PO (14:06)
[2023-04-04 18:00] VITALS: BP 103/62; PULSE 89; RESP 14; TEMP 36.6; O2SAT 94
[2023-04-04] MEDS: LORazepam 1 MG TABLET PO (20:03)
[2023-04-04] MEDS: QUEtiapine Fumarate 200 MG TABLET PO (20:04)
[2023-04-04] MEDS: Prazosin HCL 1 MG CAPSULE 2 MG PO (20:04)
[2023-04-04] MEDS: Sennosides 8.6 MG TABLET PO (20:04)
[2023-04-04] MEDS: Melatonin 3 MG TABLET 9 MG PO (20:05)
[2023-04-04] MEDS: Mirtazapine 15 MG TABLET PO (20:06)
[2023-04-05 09:00] VITALS: BP 129/70; PULSE 81; RESP 20; TEMP 36.2; O2SAT 93
[2023-04-05] MEDS: LORazepam 0.5 MG TABLET PO ×2 (09:09→14:55)
[2023-04-05] MEDS: oxyBUTYnin chloride ER 5 MG TAB.ER.24 10 MG PO (09:09)
[2023-04-05] MEDS: QUEtiapine Fumarate 100 MG TABLET PO ×2 (09:09→16:36)
[2023-04-05] MEDS: DULoxetine HCl 60 MG CAPSULE.DR PO ×2 (09:10→21:02)
[2023-04-05] MEDS: Docusate Sodium 100 MG CAPSULE PO ×2 (09:10→20:54)
[2023-04-05] MEDS: Gabapentin 300 MG CAPSULE PO ×3 (09:10→21:01)
--- NOTE | 2023-04-05 12:46 | HO.PSYCHPN ---
Subjective Subjective Date of Service: 04/05/23 Reason For Visit: F4.1 General anxiety/MDD recurrent Subjective Notes: Conditional Voluntary Interim History: The nursing staff reported the patient had been most of the time seclusive in his room but he has starting doing goals for the date like walking outside for short periods of time. Reports depressed and anxiety no bowel movement. Unfortunately we could not give him Mag citrate yesterday because it is not available at this moment in over pharmacy. I added bisacodyl but it has not worked. On interview the patient remains depressed he is fully aware of that medication changes and will wait for clinical response. Mental Status Exam Mental Status Exam Patient Appearance: Well Grooomed and Appropriate Patient Orientation: Person and Situation Level of Consciousness: Awake and Appropriate Patient Behavior: Guarded and Passive Mood Description: Withdrawn Affect Description: Constricted Patient Cognition Impaired: Yes Ability to Follow Directions: Good Speech Pattern: Clear Hallucinations: None Delusions: Not Present Thought Process: Distracted and Slowed Thinking Thought Content: positive for [place], positive for [place] of [place] and positive for Thought Blocking Judgement: Fair Diagnostics Vital Signs (24Hr): Vital Signs - 24 hr 04/04/23 18:00 04/05/23 09:00 Temperature 97.8 F 97.1 F Pulse Rate 89 81 Respiratory Rate 14 20 Blood Pressure 103/62 129/70 Pulse Oximetry 94 93 Oxygen Delivery Method Room Air Room Air BMI result Body Mass Index 23.3 Medications Medications Current Medications Acetaminophen (Acetaminophen 325 Mg Tablet) 650 mg PO Q6H PRN PRN Reason: Headache/Pain Mild Scale (1-3) Last Admin: 03/26/23 20:18 Dose: 650 mg Al Hydroxide/Mg Hydroxide (Magnesium Hydrox/Alum Hydrox 30 Ml Oral.Susp) 30 ml PO Q6H PRN PRN Reason: Heartburn/Nausea Docusate Sodium (Docusate Sodium 100 Mg Capsule) 100 mg PO BID [facility] Last Admin: 04/05/23 09:10 Dose: 100 mg Duloxetine HCl (Duloxetine Hcl 60 Mg Capsule.Dr) 60 mg PO BID [facility] Last Admin: 04/05/23 09:10 Dose: 60 mg Gabapentin (Gabapentin 300 Mg Capsule) 300 mg PO TID [facility] Last Admin: 04/05/23 09:10 Dose: 300 mg Ibuprofen (Ibuprofen 600 Mg Tablet) 600 mg PO Q6H PRN PRN Reason: Pain, Moderate(Pain Scale 4-6) Last Admin: 04/02/23 18:45 Dose: 600 mg Lorazepam (Lorazepam 1 Mg Tablet) 1 mg PO BEDTIME [facility] Last Admin: 04/04/23 20:03 Dose: 1 mg Lorazepam (Lorazepam 0.5 Mg Tablet) 0.5 mg PO BID@0830,1330 [facility] Last Admin: 04/05/23 09:09 Dose: 0.5 mg Magnesium Hydroxide (Milk Of Magnesia 30 Ml Oral.Susp) 30 ml PO DAILY PRN PRN Reason: Constipation Last Admin: 04/03/23 08:28 Dose: 30 ml Melatonin (Melatonin 3 Mg Tablet) 9 mg PO BEDTIME PRN PRN Reason: insomnia Last Admin: 04/04/23 20:05 Dose: 9 mg Mirtazapine (Mirtazapine 15 Mg Tablet) 15 mg PO BEDTIME [facility] Last Admin: 04/04/23 20:06 Dose: 15 mg Nicotine Polacrilex (Nicotine Polacrilex 2 Mg Gum) 4 mg BUCCAL Q2H PRN PRN Reason: Nicotine Cravings Oxybutynin Chloride (Oxybutynin Chloride Er 5 Mg Tab.Er.24) 10 mg PO DAILY [facility] Last Admin: 04/05/23 09:09 Dose: 10 mg Prazosin HCl (Prazosin Hcl 1 Mg Capsule) 2 mg PO BEDTIME [facility]; Protocol Last Admin: 04/04/23 20:04 Dose: 2 mg Quetiapine Fumarate (Quetiapine Fumarate 25 Mg Tablet) 25 mg PO BID PRN PRN Reason: Anxiety Quetiapine Fumarate (Quetiapine Fumarate 100 Mg Tablet) 100 mg PO BID@0800,1700 [facility] Last Admin: 04/05/23 09:09 Dose: 100 mg Quetiapine Fumarate (Quetiapine Fumarate 200 Mg Tablet) 200 mg PO BEDTIME [facility] Last Admin: 04/04/23 20:04 Dose: 200 mg Senna (Sennosides 8.6 Mg Tablet) 8.6 mg PO BEDTIME [facility] Last Admin: 04/04/23 20:04 Dose: 8.6 mg Allergies Allergies Allergy/AdvReac Type Severity Reaction Status Date / Time No Known Allergies Allergy Verified 03/21/23 18:13 Assessment & Plan Assessment & Plan (1) Major depressive disorder, recurrent episode: Status: Acute Code(s): F33.9 - Major depressive disorder, recurrent, unspecified Assessment and Plan: 03/25: change ativan to 0.5 mg bid and 1 mg nightly standing dose (2) Benzodiazepine dependence: Status: Acute Code(s): F13.20 - Sedative, hypnotic or anxiolytic dependence, uncomplicated Plan The patient is an elderly male, , with a prior history of major depressive disorder who probably is dependent to benzodiazepines at this moment, admitted for suicidal ideation in the context of running out of his lorazepam. The patient was assessed by crisis after he called 911 stating that he was suicidal and he was in [employer] with a point of and in a row in a suicidal attempt. Plan 1. Gather collateral information. 2. Continue with Ativan 1 mg p.o. b.i.d. p.r.n. anxiety. The patient is fully aware that no acid but is highly addictive and he should be using sparingly. 3. The patient reported that he was on Remeron in the past we will started tonight. 4. Continue with medical workout. 5. Reassessment with results. 6. 15 minute checks since the patient is able to contract for safety in the facility. 7. Increase gabapentin up to 300 mg t.i.d. on March 27 to target anxiety. 8. Increased Cymbalta to 60 mg p.o. daily. Cymbalta has been increased up to 60 mg p.o. b.i.d. on in April 03. 9. Discontinue Risperdal and start Seroquel 25 p.o. t.i.d. to target anxiety, it was increased up to 50 p.o. t.i.d. on March 30. On March 31 we increase Seroquel up to 100 mg p.o. t.i.d. to target anxiety. On April 04 we increased to Seroquel 100 p.o. b.i.d. and 200 mg p.o. q.h.s.. 10. Senna and colace added on April 03. Reason for continued inpatient stay Substantial Risk for: inability to function, rapid decompensation and med/psych decompensation Time Spent With Patient Time: Total time managing care of this patient today _20___ minutes.
[2023-04-05 18:00] VITALS: BP 116/69; PULSE 83; RESP 16; TEMP 36.2; O2SAT 94
[2023-04-05] MEDS: Melatonin 3 MG TABLET 9 MG PO (20:52)
[2023-04-05] MEDS: Mirtazapine 15 MG TABLET PO (20:53)
[2023-04-05] MEDS: Ibuprofen 600 MG TABLET PO (20:53)
[2023-04-05] MEDS: Prazosin HCL 1 MG CAPSULE 2 MG PO (20:54)
[2023-04-05] MEDS: QUEtiapine Fumarate 200 MG TABLET PO (20:55)
[2023-04-05] MEDS: Sennosides 8.6 MG TABLET PO (20:55)
[2023-04-05] MEDS: LORazepam 1 MG TABLET PO ×2 (20:55→21:06)
[2023-04-06 07:00] VITALS: BMI 24.2
[2023-04-06 09:34] VITALS: BP 92/56; PULSE 93; RESP 16; TEMP 36.4; O2SAT 95
[2023-04-06] MEDS: Gabapentin 300 MG CAPSULE PO ×3 (09:36→20:51)
[2023-04-06] MEDS: oxyBUTYnin chloride ER 5 MG TAB.ER.24 10 MG PO (09:36)
[2023-04-06] MEDS: DULoxetine HCl 60 MG CAPSULE.DR PO ×2 (09:36→20:51)
[2023-04-06] MEDS: LORazepam 0.5 MG TABLET PO ×2 (09:36→14:47)
[2023-04-06] MEDS: Docusate Sodium 100 MG CAPSULE PO ×2 (09:36→20:53)
[2023-04-06] MEDS: QUEtiapine Fumarate 100 MG TABLET PO ×2 (09:36→18:17)
--- NOTE | 2023-04-06 11:27 | P.PNPSI_ITS ---
Subjective Subjective Date of Service: 04/06/23 Reason For Visit: F4.1 General anxiety/MDD recurrent Subjective Notes: Conditional Voluntary Interim History: The nursing staff reported the patient had been full feeling his small goals during the day. He had eating well. The social service director has helping to get more services in the house. She also contact his family reported that he usually easily that, with a very disorganized home. On interview the patient reports anxiety and depression currently we have maximized Cymbalta and Seroquel. We will wait. I offer him ECT but he refused at this moment. Mental Status Exam Mental Status Exam Patient Appearance: Well Grooomed and Appropriate Patient Orientation: Person and Situation Level of Consciousness: Awake and Appropriate Patient Behavior: Guarded and Passive Mood Description: Withdrawn Affect Description: Constricted Patient Cognition Impaired: Yes Ability to Follow Directions: Good Speech Pattern: Clear Hallucinations: None Delusions: Not Present Thought Process: Racing and Distracted Thought Content: positive for [place] and positive for Circumstantial Judgement: Fair Diagnostics Vital Signs (24Hr): Vital Signs - 24 hr 04/05/23 18:00 04/06/23 09:34 Temperature 97.2 F 97.6 F Pulse Rate 83 93 Respiratory Rate 16 16 Blood Pressure 116/69 92/56 L Pulse Oximetry 94 95 Oxygen Delivery Method Room Air Room Air BMI result Body Mass Index 23.3 Medications Medications Current Medications Acetaminophen (Acetaminophen 325 Mg Tablet) 650 mg PO Q6H PRN PRN Reason: Headache/Pain Mild Scale (1-3) Last Admin: 03/26/23 20:18 Dose: 650 mg Al Hydroxide/Mg Hydroxide (Magnesium Hydrox/Alum Hydrox 30 Ml Oral.Susp) 30 ml PO Q6H PRN PRN Reason: Heartburn/Nausea Docusate Sodium (Docusate Sodium 100 Mg Capsule) 100 mg PO BID [facility] Last Admin: 04/06/23 09:36 Dose: 100 mg Duloxetine HCl (Duloxetine Hcl 60 Mg Capsule.Dr) 60 mg PO BID [facility] Last Admin: 04/06/23 09:36 Dose: 60 mg Gabapentin (Gabapentin 300 Mg Capsule) 300 mg PO TID [facility] Last Admin: 04/06/23 09:36 Dose: 300 mg Ibuprofen (Ibuprofen 600 Mg Tablet) 600 mg PO Q6H PRN PRN Reason: Pain, Moderate(Pain Scale 4-6) Last Admin: 04/05/23 20:53 Dose: 600 mg Lorazepam (Lorazepam 1 Mg Tablet) 1 mg PO BEDTIME [facility] Last Admin: 04/05/23 21:06 Dose: 1 mg Lorazepam (Lorazepam 0.5 Mg Tablet) 0.5 mg PO BID@0830,1330 [facility] Last Admin: 04/06/23 09:36 Dose: 0.5 mg Magnesium Hydroxide (Milk Of Magnesia 30 Ml Oral.Susp) 30 ml PO DAILY PRN PRN Reason: Constipation Last Admin: 04/03/23 08:28 Dose: 30 ml Melatonin (Melatonin 3 Mg Tablet) 9 mg PO BEDTIME PRN PRN Reason: insomnia Last Admin: 04/05/23 20:52 Dose: 9 mg Mirtazapine (Mirtazapine 15 Mg Tablet) 15 mg PO BEDTIME [facility] Last Admin: 04/05/23 20:53 Dose: 15 mg Nicotine Polacrilex (Nicotine Polacrilex 2 Mg Gum) 4 mg BUCCAL Q2H PRN PRN Reason: Nicotine Cravings Oxybutynin Chloride (Oxybutynin Chloride Er 5 Mg Tab.Er.24) 10 mg PO DAILY [facility] Last Admin: 04/06/23 09:36 Dose: 10 mg Prazosin HCl (Prazosin Hcl 1 Mg Capsule) 2 mg PO BEDTIME [facility]; Protocol Last Admin: 04/05/23 20:54 Dose: 2 mg Quetiapine Fumarate (Quetiapine Fumarate 25 Mg Tablet) 25 mg PO BID PRN PRN Reason: Anxiety Quetiapine Fumarate (Quetiapine Fumarate 100 Mg Tablet) 100 mg PO BID@0800,1700 [facility] Last Admin: 04/06/23 09:36 Dose: 100 mg Quetiapine Fumarate (Quetiapine Fumarate 200 Mg Tablet) 200 mg PO BEDTIME [facility] Last Admin: 04/05/23 20:55 Dose: 200 mg Senna (Sennosides 8.6 Mg Tablet) 8.6 mg PO BEDTIME [facility] Last Admin: 04/05/23 20:55 Dose: 8.6 mg Sodium Biphosphate/Sodium Phosphate (Sodium Phosphate,[place]-Dibasic 133 Ml Enema) 133 ml [place] ONCE PRN PRN Reason: Constipation Allergies Allergies Allergy/AdvReac Type Severity Reaction Status Date / Time No Known Allergies Allergy Verified 03/21/23 18:13 Assessment & Plan Assessment & Plan (1) Major depressive disorder, recurrent episode: Status: Acute Code(s): F33.9 - Major depressive disorder, recurrent, unspecified Assessment and Plan: 03/25: change ativan to 0.5 mg bid and 1 mg nightly standing dose (2) Benzodiazepine dependence: Status: Acute Code(s): F13.20 - Sedative, hypnotic or anxiolytic dependence, uncomplicated Plan The patient is an elderly male, , with a prior history of major depressive disorder who probably is dependent to benzodiazepines at this moment, admitted for suicidal ideation in the context of running out of his lorazepam. The patient was assessed by crisis after he called 911 stating that he was suicidal and he was in [employer] with a point of and in a row in a suicidal attempt. Plan 1. Gather collateral information. 2. Continue with Ativan 1 mg p.o. b.i.d. p.r.n. anxiety. The patient is fully aware that no acid but is highly addictive and he should be using sparingly. 3. The patient reported that he was on Remeron in the past we will started tonight. 4. Continue with medical workout. 5. Reassessment with results. 6. 15 minute checks since the patient is able to contract for safety in the facility. 7. Increase gabapentin up to 300 mg t.i.d. on March 27 to target anxiety. 8. Increased Cymbalta to 60 mg p.o. daily. Cymbalta has been increased up to 60 mg p.o. b.i.d. on in April 03. 9. Discontinue Risperdal and start Seroquel 25 p.o. t.i.d. to target anxiety, it was increased up to 50 p.o. t.i.d. on March 30. On March 31 we increase Seroquel up to 100 mg p.o. t.i.d. to target anxiety. On April 04 we increased to Seroquel 100 p.o. b.i.d. and 200 mg p.o. q.h.s.. 10. Senna and colace added on April 03. Reason for continued inpatient stay Substantial Risk for: inability to function, rapid decompensation and med/psych decompensation Time Spent With Patient Time: Total time managing care of this patient today __20__ minutes.
[2023-04-06 18:00] VITALS: BP 123/59; PULSE 66; RESP 16; TEMP 36.6; O2SAT 94
[2023-04-06] MEDS: LORazepam 1 MG TABLET PO (20:50)
[2023-04-06] MEDS: QUEtiapine Fumarate 200 MG TABLET PO (20:50)
[2023-04-06] MEDS: Mirtazapine 15 MG TABLET PO (20:51)
[2023-04-06] MEDS: Melatonin 3 MG TABLET 9 MG PO (20:52)
[2023-04-06] MEDS: Prazosin HCL 1 MG CAPSULE 2 MG PO (20:52)
[2023-04-06] MEDS: Sennosides 8.6 MG TABLET PO (20:53)
[2023-04-07 08:18] VITALS: BP 99/60; PULSE 88; RESP 16; TEMP 36.4; O2SAT 94
[2023-04-07] MEDS: DULoxetine HCl 60 MG CAPSULE.DR PO ×2 (08:19→20:42)
[2023-04-07] MEDS: oxyBUTYnin chloride ER 5 MG TAB.ER.24 10 MG PO (08:19)
[2023-04-07] MEDS: Gabapentin 300 MG CAPSULE PO ×3 (08:19→20:42)
[2023-04-07] MEDS: Docusate Sodium 100 MG CAPSULE PO ×2 (08:19→20:42)
[2023-04-07] MEDS: LORazepam 0.5 MG TABLET PO ×2 (08:19→12:51)
[2023-04-07] MEDS: QUEtiapine Fumarate 100 MG TABLET PO ×2 (08:19→17:51)
--- NOTE | 2023-04-07 14:28 | P.PNPSI_ITS ---
Subjective Subjective Date of Service: 04/07/23 Reason For Visit: F4.1 General anxiety/MDD recurrent Subjective Notes: Conditional Voluntary Interim History: The nursing staff reported the patient slept well last night. He was out for a short period of time. The occupational therapist encouraged him to go to groups but so far has been refused. The social professionals reported that his sister is involved and there were trying to find out if he can go to an assisted living facility since going [place] home is not optimal. On interview the patient reported that he feels much better still dysphoric. Mental Status Exam Mental Status Exam Patient Appearance: Appropriate Patient Orientation: Person and Situation Level of Consciousness: Awake Patient Behavior: Appropriate Mood Description: Calm Affect Description: Blunted Patient Cognition Impaired: Yes Ability to Follow Directions: Good Speech Pattern: Clear Hallucinations: None Delusions: Not Present Thought Process: Distracted and Linear Thought Content: positive for [place] and positive for [place] of Content Judgement: Poor Diagnostics Vital Signs (24Hr): Vital Signs - 24 hr 04/06/23 18:00 04/07/23 08:18 Temperature 98 F 97.6 F Pulse Rate 66 88 Respiratory Rate 16 16 Blood Pressure 123/59 L 99/60 Pulse Oximetry 94 94 Oxygen Delivery Method Room Air Room Air BMI result Body Mass Index 24.2 Medications Medications Current Medications Acetaminophen (Acetaminophen 325 Mg Tablet) 650 mg PO Q6H PRN PRN Reason: Headache/Pain Mild Scale (1-3) Last Admin: 03/26/23 20:18 Dose: 650 mg Al Hydroxide/Mg Hydroxide (Magnesium Hydrox/Alum Hydrox 30 Ml Oral.Susp) 30 ml PO Q6H PRN PRN Reason: Heartburn/Nausea Docusate Sodium (Docusate Sodium 100 Mg Capsule) 100 mg PO BID [facility] Last Admin: 04/07/23 08:19 Dose: 100 mg Duloxetine HCl (Duloxetine Hcl 60 Mg Capsule.Dr) 60 mg PO BID [facility] Last Admin: 04/07/23 08:19 Dose: 60 mg Gabapentin (Gabapentin 300 Mg Capsule) 300 mg PO TID [facility] Last Admin: 04/07/23 08:19 Dose: 300 mg Ibuprofen (Ibuprofen 600 Mg Tablet) 600 mg PO Q6H PRN PRN Reason: Pain, Moderate(Pain Scale 4-6) Last Admin: 04/05/23 20:53 Dose: 600 mg Lorazepam (Lorazepam 1 Mg Tablet) 1 mg PO BEDTIME [facility] Last Admin: 04/06/23 20:50 Dose: 1 mg Lorazepam (Lorazepam 0.5 Mg Tablet) 0.5 mg PO BID@0830,1330 [facility] Last Admin: 04/07/23 12:51 Dose: 0.5 mg Magnesium Hydroxide (Milk Of Magnesia 30 Ml Oral.Susp) 30 ml PO DAILY PRN PRN Reason: Constipation Last Admin: 04/03/23 08:28 Dose: 30 ml Melatonin (Melatonin 3 Mg Tablet) 9 mg PO BEDTIME PRN PRN Reason: insomnia Last Admin: 04/06/23 20:52 Dose: 9 mg Mirtazapine (Mirtazapine 15 Mg Tablet) 15 mg PO BEDTIME [facility] Last Admin: 04/06/23 20:51 Dose: 15 mg Nicotine Polacrilex (Nicotine Polacrilex 2 Mg Gum) 4 mg BUCCAL Q2H PRN PRN Reason: Nicotine Cravings Oxybutynin Chloride (Oxybutynin Chloride Er 5 Mg Tab.Er.24) 10 mg PO DAILY [facility] Last Admin: 04/07/23 08:19 Dose: 10 mg Prazosin HCl (Prazosin Hcl 1 Mg Capsule) 2 mg PO BEDTIME [facility]; Protocol Last Admin: 04/06/23 20:52 Dose: 2 mg Quetiapine Fumarate (Quetiapine Fumarate 25 Mg Tablet) 25 mg PO BID PRN PRN Reason: Anxiety Quetiapine Fumarate (Quetiapine Fumarate 100 Mg Tablet) 100 mg PO BID@0800,1700 [facility] Last Admin: 04/07/23 08:19 Dose: 100 mg Quetiapine Fumarate (Quetiapine Fumarate 200 Mg Tablet) 200 mg PO BEDTIME [facility] Last Admin: 04/06/23 20:50 Dose: 200 mg Senna (Sennosides 8.6 Mg Tablet) 8.6 mg PO BEDTIME [facility] Last Admin: 04/06/23 20:53 Dose: 8.6 mg Sodium Biphosphate/Sodium Phosphate (Sodium Phosphate,[place]-Dibasic 133 Ml Enema) 133 ml AL ONCE PRN PRN Reason: Constipation Allergies Allergies Allergy/AdvReac Type Severity Reaction Status Date / Time No Known Allergies Allergy Verified 03/21/23 18:13 Assessment & Plan Assessment & Plan (1) Major depressive disorder, recurrent episode: Status: Acute Code(s): F33.9 - Major depressive disorder, recurrent, unspecified Assessment and Plan: 03/25: change ativan to 0.5 mg bid and 1 mg nightly standing dose (2) Benzodiazepine dependence: Status: Acute Code(s): F13.20 - Sedative, hypnotic or anxiolytic dependence, uncomplicated Plan The patient is an elderly male, , with a prior history of major depressive disorder who probably is dependent to benzodiazepines at this moment, admitted for suicidal ideation in the context of running out of his lorazepam. The patient was assessed by crisis after he called 911 stating that he was suicidal and he was in [employer] with a point of and in a row in a suicidal attempt. Plan 1. Gather collateral information. 2. Continue with Ativan 1 mg p.o. b.i.d. p.r.n. anxiety. The patient is fully aware that no acid but is highly addictive and he should be using sparingly. 3. The patient reported that he was on Remeron in the past we will started tonight. 4. Continue with medical workout. 5. Reassessment with results. 6. 15 minute checks since the patient is able to contract for safety in the facility. 7. Increase gabapentin up to 300 mg t.i.d. on March 27 to target anxiety. 8. Increased Cymbalta to 60 mg p.o. daily. Cymbalta has been increased up to 60 mg p.o. b.i.d. on in April 03. 9. Discontinue Risperdal and start Seroquel 25 p.o. t.i.d. to target anxiety, it was increased up to 50 p.o. t.i.d. on March 30. On March 31 we increase Seroquel up to 100 mg p.o. t.i.d. to target anxiety. On April 04 we increased to Seroquel 100 p.o. b.i.d. and 200 mg p.o. q.h.s.. 10. Senna and colace added on April 03. Reason for continued inpatient stay Substantial Risk for: inability to function, rapid decompensation and med/psych decompensation Time Spent With Patient Time: Total time managing care of this patient today _20___ minutes.
[2023-04-07 19:40] VITALS: BP 104/55; PULSE 96; RESP 18; TEMP 36.5; O2SAT 92
[2023-04-07] MEDS: Prazosin HCL 1 MG CAPSULE 2 MG PO (20:41)
[2023-04-07] MEDS: Melatonin 3 MG TABLET 9 MG PO (20:41)
[2023-04-07] MEDS: Mirtazapine 15 MG TABLET PO (20:42)
[2023-04-07] MEDS: Sennosides 8.6 MG TABLET PO (20:42)
[2023-04-07] MEDS: QUEtiapine Fumarate 200 MG TABLET PO (20:42)
[2023-04-07] MEDS: LORazepam 1 MG TABLET PO (20:42)
[2023-04-08 09:06] VITALS: BP 121/72; PULSE 90; RESP 20; TEMP 36.6; O2SAT 95
[2023-04-08] MEDS: DULoxetine HCl 60 MG CAPSULE.DR PO ×2 (09:10→20:17)
[2023-04-08] MEDS: LORazepam 0.5 MG TABLET PO ×2 (09:10→13:19)
[2023-04-08] MEDS: QUEtiapine Fumarate 100 MG TABLET PO ×2 (09:10→16:30)
[2023-04-08] MEDS: Docusate Sodium 100 MG CAPSULE PO ×2 (09:10→20:17)
[2023-04-08] MEDS: Gabapentin 300 MG CAPSULE PO ×3 (09:10→20:17)
[2023-04-08] MEDS: oxyBUTYnin chloride ER 5 MG TAB.ER.24 10 MG PO (09:10)
--- NOTE | 2023-04-08 09:25 | HO.PSYCHPN ---
Subjective Subjective Date of Service: 04/08/23 Reason For Visit: F4.1 General anxiety/MDD recurrent Subjective Notes: Conditional Voluntary Interim History: The nursing staff reported the patient have slept well last night he states that he had been constipated for at least a week and now he is willing to have the Fleet enema. He reports anxiety and depression and apparently he was incontinent of urine last night. On interview we discussed his problems and he is willing to have the enema today. No changes in his mental status. Mental Status Exam Mental Status Exam Patient Appearance: Appropriate Patient Orientation: Person and Situation Level of Consciousness: Awake and Appropriate Patient Behavior: Guarded and Passive Mood Description: Withdrawn Affect Description: Constricted Patient Cognition Impaired: Yes Ability to Follow Directions: Good Speech Pattern: Clear Hallucinations: None Delusions: Not Present Thought Process: Distracted and Slowed Thinking Thought Content: positive for [place] and positive for Circumstantial Judgement: Fair Diagnostics Vital Signs (24Hr): Vital Signs - 24 hr 04/07/23 19:40 04/08/23 09:06 Temperature 97.7 F 97.9 F Pulse Rate 96 90 Respiratory Rate 18 20 Blood Pressure 104/55 L 121/72 Pulse Oximetry 92 95 Oxygen Delivery Method Room Air Room Air BMI result Body Mass Index 24.2 Medications Medications Current Medications Acetaminophen (Acetaminophen 325 Mg Tablet) 650 mg PO Q6H PRN PRN Reason: Headache/Pain Mild Scale (1-3) Last Admin: 03/26/23 20:18 Dose: 650 mg Al Hydroxide/Mg Hydroxide (Magnesium Hydrox/Alum Hydrox 30 Ml Oral.Susp) 30 ml PO Q6H PRN PRN Reason: Heartburn/Nausea Docusate Sodium (Docusate Sodium 100 Mg Capsule) 100 mg PO BID [facility] Last Admin: 04/08/23 09:10 Dose: 100 mg Duloxetine HCl (Duloxetine Hcl 60 Mg Capsule.Dr) 60 mg PO BID [facility] Last Admin: 04/08/23 09:10 Dose: 60 mg Gabapentin (Gabapentin 300 Mg Capsule) 300 mg PO TID [facility] Last Admin: 04/08/23 09:10 Dose: 300 mg Ibuprofen (Ibuprofen 600 Mg Tablet) 600 mg PO Q6H PRN PRN Reason: Pain, Moderate(Pain Scale 4-6) Last Admin: 04/05/23 20:53 Dose: 600 mg Lorazepam (Lorazepam 1 Mg Tablet) 1 mg PO BEDTIME [facility] Last Admin: 04/07/23 20:42 Dose: 1 mg Lorazepam (Lorazepam 0.5 Mg Tablet) 0.5 mg PO BID@0830,1330 [facility] Last Admin: 04/08/23 09:10 Dose: 0.5 mg Magnesium Hydroxide (Milk Of Magnesia 30 Ml Oral.Susp) 30 ml PO DAILY PRN PRN Reason: Constipation Last Admin: 04/03/23 08:28 Dose: 30 ml Melatonin (Melatonin 3 Mg Tablet) 9 mg PO BEDTIME PRN PRN Reason: insomnia Last Admin: 04/07/23 20:41 Dose: 9 mg Mirtazapine (Mirtazapine 15 Mg Tablet) 15 mg PO BEDTIME [facility] Last Admin: 04/07/23 20:42 Dose: 15 mg Nicotine Polacrilex (Nicotine Polacrilex 2 Mg Gum) 4 mg BUCCAL Q2H PRN PRN Reason: Nicotine Cravings Oxybutynin Chloride (Oxybutynin Chloride Er 5 Mg Tab.Er.24) 10 mg PO DAILY [facility] Last Admin: 04/08/23 09:10 Dose: 10 mg Prazosin HCl (Prazosin Hcl 1 Mg Capsule) 2 mg PO BEDTIME [facility]; Protocol Last Admin: 04/07/23 20:41 Dose: 2 mg Quetiapine Fumarate (Quetiapine Fumarate 25 Mg Tablet) 25 mg PO BID PRN PRN Reason: Anxiety Quetiapine Fumarate (Quetiapine Fumarate 100 Mg Tablet) 100 mg PO BID@0800,1700 [facility] Last Admin: 04/08/23 09:10 Dose: 100 mg Quetiapine Fumarate (Quetiapine Fumarate 200 Mg Tablet) 200 mg PO BEDTIME [facility] Last Admin: 04/07/23 20:42 Dose: 200 mg Senna (Sennosides 8.6 Mg Tablet) 8.6 mg PO BEDTIME [facility] Last Admin: 04/07/23 20:42 Dose: 8.6 mg Sodium Biphosphate/Sodium Phosphate (Sodium Phosphate,[place]-Dibasic 133 Ml Enema) 133 ml NM ONCE PRN PRN Reason: Constipation Allergies Allergies Allergy/AdvReac Type Severity Reaction Status Date / Time No Known Allergies Allergy Verified 03/21/23 18:13 Assessment & Plan Assessment & Plan (1) Major depressive disorder, recurrent episode: Status: Acute Code(s): F33.9 - Major depressive disorder, recurrent, unspecified Assessment and Plan: 03/25: change ativan to 0.5 mg bid and 1 mg nightly standing dose (2) Benzodiazepine dependence: Status: Acute Code(s): F13.20 - Sedative, hypnotic or anxiolytic dependence, uncomplicated Plan The patient is an elderly male, , with a prior history of major depressive disorder who probably is dependent to benzodiazepines at this moment, admitted for suicidal ideation in the context of running out of his lorazepam. The patient was assessed by crisis after he called 911 stating that he was suicidal and he was in [employer] with a point of and in a row in a suicidal attempt. Plan 1. Gather collateral information. 2. Continue with Ativan 1 mg p.o. b.i.d. p.r.n. anxiety. The patient is fully aware that no acid but is highly addictive and he should be using sparingly. 3. The patient reported that he was on Remeron in the past we will started tonight. 4. Continue with medical workout. 5. Reassessment with results. 6. 15 minute checks since the patient is able to contract for safety in the facility. 7. Increase gabapentin up to 300 mg t.i.d. on March 27 to target anxiety. 8. Increased Cymbalta to 60 mg p.o. daily. Cymbalta has been increased up to 60 mg p.o. b.i.d. on in April 03. 9. Discontinue Risperdal and start Seroquel 25 p.o. t.i.d. to target anxiety, it was increased up to 50 p.o. t.i.d. on March 30. On March 31 we increase Seroquel up to 100 mg p.o. t.i.d. to target anxiety. On April 04 we increased to Seroquel 100 p.o. b.i.d. and 200 mg p.o. q.h.s.. 10. Senna and colace added on April 03. 11. Fleet enema today on April 08 Reason for continued inpatient stay Substantial Risk for: inability to function, rapid decompensation and med/psych decompensation Time Spent With Patient Time: Total time managing care of this patient today ___20_ minutes.
[2023-04-08] MEDS: Sodium Phosphate,Mono-Dibasic 133 ML ENEMA PR (10:00)
[2023-04-08 19:35] VITALS: BP 105/58; PULSE 70; RESP 16; TEMP 36.9; O2SAT 92
[2023-04-08] MEDS: QUEtiapine Fumarate 200 MG TABLET PO (20:17)
[2023-04-08] MEDS: Prazosin HCL 1 MG CAPSULE 2 MG PO (20:17)
[2023-04-08] MEDS: Mirtazapine 15 MG TABLET PO (20:17)
[2023-04-08] MEDS: Melatonin 3 MG TABLET 9 MG PO (20:17)
[2023-04-08] MEDS: Sennosides 8.6 MG TABLET PO (20:17)
[2023-04-09 08:10] VITALS: BP 131/71; PULSE 100; RESP 18; TEMP 36.3; O2SAT 95
[2023-04-09] MEDS: Docusate Sodium 100 MG CAPSULE PO ×2 (08:16→21:37)
[2023-04-09] MEDS: QUEtiapine Fumarate 100 MG TABLET PO ×2 (08:16→17:36)
[2023-04-09] MEDS: oxyBUTYnin chloride ER 5 MG TAB.ER.24 10 MG PO (08:16)
[2023-04-09] MEDS: DULoxetine HCl 60 MG CAPSULE.DR PO ×2 (08:16→21:37)
[2023-04-09] MEDS: Gabapentin 300 MG CAPSULE PO ×3 (08:16→22:06)
--- NOTE | 2023-04-09 09:23 | HO.PSYCHPN ---
Subjective Subjective Date of Service: 04/09/23 Reason For Visit: F4.1 General anxiety/MDD recurrent Subjective Notes: Conditional Voluntary Interim History: The nursing staff reported the patient had an an MR yesterday with a good bowel movement. He slept 9 hours. He remains most of the time on his room but we had a goal to go out every meal. On interview the patient reports that he still anxious and he is trying to work on his goals of today. Mental Status Exam Mental Status Exam Patient Appearance: Appropriate Patient Orientation: Person and Situation Level of Consciousness: Awake and Appropriate Patient Behavior: Guarded and Passive Mood Description: Withdrawn and Depressed Affect Description: Constricted Patient Cognition Impaired: Yes Ability to Follow Directions: Good Speech Pattern: Clear Hallucinations: None Delusions: Not Present Thought Process: Distracted and Linear Thought Content: positive for [place] and positive for Circumstantial Judgement: Poor Diagnostics Vital Signs (24Hr): Vital Signs - 24 hr 04/08/23 19:35 04/09/23 08:10 Temperature 98.5 F 97.4 F Pulse Rate 70 100 Respiratory Rate 16 18 Blood Pressure 105/58 L 131/71 Pulse Oximetry 92 95 Oxygen Delivery Method Room Air Room Air BMI result Body Mass Index 24.2 Medications Medications Current Medications Acetaminophen (Acetaminophen 325 Mg Tablet) 650 mg PO Q6H PRN PRN Reason: Headache/Pain Mild Scale (1-3) Last Admin: 03/26/23 20:18 Dose: 650 mg Al Hydroxide/Mg Hydroxide (Magnesium Hydrox/Alum Hydrox 30 Ml Oral.Susp) 30 ml PO Q6H PRN PRN Reason: Heartburn/Nausea Docusate Sodium (Docusate Sodium 100 Mg Capsule) 100 mg PO BID [facility] Last Admin: 04/09/23 08:16 Dose: 100 mg Duloxetine HCl (Duloxetine Hcl 60 Mg Capsule.Dr) 60 mg PO BID [facility] Last Admin: 04/09/23 08:16 Dose: 60 mg Gabapentin (Gabapentin 300 Mg Capsule) 300 mg PO TID [facility] Last Admin: 04/09/23 08:16 Dose: 300 mg Ibuprofen (Ibuprofen 600 Mg Tablet) 600 mg PO Q6H PRN PRN Reason: Pain, Moderate(Pain Scale 4-6) Last Admin: 04/05/23 20:53 Dose: 600 mg Magnesium Hydroxide (Milk Of Magnesia 30 Ml Oral.Susp) 30 ml PO DAILY PRN PRN Reason: Constipation Last Admin: 04/03/23 08:28 Dose: 30 ml Melatonin (Melatonin 3 Mg Tablet) 9 mg PO BEDTIME PRN PRN Reason: insomnia Last Admin: 04/08/23 20:17 Dose: 9 mg Mirtazapine (Mirtazapine 15 Mg Tablet) 15 mg PO BEDTIME [facility] Last Admin: 04/08/23 20:17 Dose: 15 mg Nicotine Polacrilex (Nicotine Polacrilex 2 Mg Gum) 4 mg BUCCAL Q2H PRN PRN Reason: Nicotine Cravings Oxybutynin Chloride (Oxybutynin Chloride Er 5 Mg Tab.Er.24) 10 mg PO DAILY [facility] Last Admin: 04/09/23 08:16 Dose: 10 mg Prazosin HCl (Prazosin Hcl 1 Mg Capsule) 2 mg PO BEDTIME [facility]; Protocol Last Admin: 04/08/23 20:17 Dose: 2 mg Quetiapine Fumarate (Quetiapine Fumarate 25 Mg Tablet) 25 mg PO BID PRN PRN Reason: Anxiety Quetiapine Fumarate (Quetiapine Fumarate 100 Mg Tablet) 100 mg PO BID@0800,1700 [facility] Last Admin: 04/09/23 08:16 Dose: 100 mg Quetiapine Fumarate (Quetiapine Fumarate 200 Mg Tablet) 200 mg PO BEDTIME [facility] Last Admin: 04/08/23 20:17 Dose: 200 mg Senna (Sennosides 8.6 Mg Tablet) 8.6 mg PO BEDTIME [facility] Last Admin: 04/08/23 20:17 Dose: 8.6 mg Sodium Biphosphate/Sodium Phosphate (Sodium Phosphate,[place]-Dibasic 133 Ml Enema) 133 ml NM ONCE PRN PRN Reason: Constipation Last Admin: 04/08/23 10:00 Dose: 133 ml Allergies Allergies Allergy/AdvReac Type Severity Reaction Status Date / Time No Known Allergies Allergy Verified 03/21/23 18:13 Assessment & Plan Assessment & Plan (1) Major depressive disorder, recurrent episode: Status: Acute Code(s): F33.9 - Major depressive disorder, recurrent, unspecified Assessment and Plan: 03/25: change ativan to 0.5 mg bid and 1 mg nightly standing dose (2) Benzodiazepine dependence: Status: Acute Code(s): F13.20 - Sedative, hypnotic or anxiolytic dependence, uncomplicated Plan The patient is an elderly male, , with a prior history of major depressive disorder who probably is dependent to benzodiazepines at this moment, admitted for suicidal ideation in the context of running out of his lorazepam. 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 Plan 1. Gather collateral information. 2. Continue with Ativan 1 mg p.o. b.i.d. p.r.n. anxiety. The patient is fully aware that no acid but is highly addictive and he should be using sparingly. 3. The patient reported that he was on Remeron in the past we will started tonight. 4. Continue with medical workout. 5. Reassessment with results. 6. 15 minute checks since the patient is able to contract for safety in the facility. 7. Increase gabapentin up to 300 mg t.i.d. on March 27 to target anxiety. 8. Increased Cymbalta to 60 mg p.o. daily. Cymbalta has been increased up to 60 mg p.o. b.i.d. on in April 03. 9. Discontinue Risperdal and start Seroquel 25 p.o. t.i.d. to target anxiety, it was increased up to 50 p.o. t.i.d. on March 30. On March 31 we increase Seroquel up to 100 mg p.o. t.i.d. to target anxiety. On April 04 we increased to Seroquel 100 p.o. b.i.d. and 200 mg p.o. q.h.s.. 10. Senna and colace added on April 03. 11. Yeimi munoz today on April 08 with good result. Reason for continued inpatient stay Substantial Risk for: inability to function, rapid decompensation and med/psych decompensation Time Spent With Patient Time: Total time managing care of this patient today __20__ minutes.
[2023-04-09] MEDS: QUEtiapine Fumarate 25 MG TABLET PO (13:29)
[2023-04-09 18:00] VITALS: BP 118/72; PULSE 68; RESP 16; TEMP 36.1; O2SAT 98
[2023-04-09] MEDS: QUEtiapine Fumarate 200 MG TABLET PO (21:36)
[2023-04-09] MEDS: Mirtazapine 15 MG TABLET PO (21:37)
[2023-04-09] MEDS: Prazosin HCL 1 MG CAPSULE 2 MG PO (21:38)
[2023-04-09] MEDS: Melatonin 3 MG TABLET 9 MG PO (21:45)
[2023-04-09] MEDS: Sennosides 8.6 MG TABLET PO (21:51)
[2023-04-09] MEDS: Ibuprofen 600 MG TABLET PO (21:55)
[2023-04-09] MEDS: LORazepam 1 MG TABLET PO (22:02)
[2023-04-10 06:00] VITALS: BP 90/55; PULSE 76; RESP 16; O2SAT 96
[2023-04-10] MEDS: DULoxetine HCl 60 MG CAPSULE.DR PO ×2 (09:15→20:00)
[2023-04-10] MEDS: LORazepam 0.5 MG TABLET PO ×2 (09:15→12:36)
[2023-04-10] MEDS: Gabapentin 300 MG CAPSULE PO ×3 (09:15→19:59)
[2023-04-10] MEDS: QUEtiapine Fumarate 25 MG TABLET PO (09:15)
[2023-04-10] MEDS: Docusate Sodium 100 MG CAPSULE PO ×2 (09:15→20:00)
[2023-04-10] MEDS: QUEtiapine Fumarate 100 MG TABLET PO ×2 (09:15→19:09)
[2023-04-10] MEDS: oxyBUTYnin chloride ER 5 MG TAB.ER.24 10 MG PO (09:16)
--- NOTE | 2023-04-10 10:27 | HO.PSYCHPN ---
Subjective Subjective Date of Service: 04/10/23 Reason For Visit: F4.1 General anxiety/MDD recurrent Subjective Notes: Conditional Voluntary Healthcare Proxy: No Guardianship: No Medical Problems Affecting Mental Status: No Interim History: I just made it through a whole group. Pt seen after group, he is awake, alert, in his room. He immediately engages, talks of being from [place], going to the [employer] there and how difficult symptom mgt has been for him. Reports feeling hopeful about his regime, I think it just needs time to work . Reports some improvement since admission and reports feeling safe in hospital. Denies pain, med SE and states I am trying, but it is hard. Anxious with some spontaneous smiles and appears to have some episodic relief of sx. Medication Compliance: Yes Side effects from medications: No Attending Groups: Yes Review of Systems Acute medical concerns: No Medical Review of Systems: unchanged Mental Status Exam Mental Status Exam Patient Appearance: Fatigued Patient Orientation: Person, Place and Situation Level of Consciousness: Alert Patient Behavior: Appropriate, Talkative, Cooperative, Passive, Anxious, Fearful, Distractible and Good Eye Contact Mood Description: Anxious and Apprehensive Affect Description: Anxious and Apprehensive Patient Cognition Impaired: No Ability to Follow Directions: Good Speech Pattern: Perseverating, Spontaneous Speech and Soft-Spoken Memory Description: Intact Hallucinations: None Delusions: Not Present Thought Process: Distracted and Rumination Thought Content: positive for Circumstantial, positive for Perseveration and positive for Suicidal Ideation (denies) Depressive Symptoms: Increased Anxiety, Difficulty Sleeping (team reports six hours of sleep last night) and Thoughts of /Suicide (denies) Judgement: Fair Diagnostics Vital Signs (24Hr): Vital Signs - 24 hr 04/09/23 18:00 04/10/23 06:00 Temperature 96.9 F Pulse Rate 68 76 Respiratory Rate 16 16 Blood Pressure 118/72 90/55 L Pulse Oximetry 98 96 Oxygen Delivery Method Room Air Room Air BMI result Body Mass Index 24.2 Medications Medications Current Medications Acetaminophen (Acetaminophen 325 Mg Tablet) 650 mg PO Q6H PRN PRN Reason: Headache/Pain Mild Scale (1-3) Last Admin: 03/26/23 20:18 Dose: 650 mg Al Hydroxide/Mg Hydroxide (Magnesium Hydrox/Alum Hydrox 30 Ml Oral.Susp) 30 ml PO Q6H PRN PRN Reason: Heartburn/Nausea Docusate Sodium (Docusate Sodium 100 Mg Capsule) 100 mg PO BID [facility] Last Admin: 04/10/23 09:15 Dose: 100 mg Duloxetine HCl (Duloxetine Hcl 60 Mg Capsule.Dr) 60 mg PO BID [facility] Last Admin: 04/10/23 09:15 Dose: 60 mg Gabapentin (Gabapentin 300 Mg Capsule) 300 mg PO TID [facility] Last Admin: 04/10/23 09:15 Dose: 300 mg Ibuprofen (Ibuprofen 600 Mg Tablet) 600 mg PO Q6H PRN PRN Reason: Pain, Moderate(Pain Scale 4-6) Last Admin: 04/09/23 21:55 Dose: 600 mg Lorazepam (Lorazepam 1 Mg Tablet) 1 mg PO BEDTIME [facility] Last Admin: 04/09/23 22:02 Dose: 1 mg Lorazepam (Lorazepam 0.5 Mg Tablet) 0.5 mg PO BID@0830,1330 [facility] Last Admin: 04/10/23 09:15 Dose: 0.5 mg Magnesium Hydroxide (Milk Of Magnesia 30 Ml Oral.Susp) 30 ml PO DAILY PRN PRN Reason: Constipation Last Admin: 04/03/23 08:28 Dose: 30 ml Melatonin (Melatonin 3 Mg Tablet) 9 mg PO BEDTIME PRN PRN Reason: insomnia Last Admin: 04/09/23 21:45 Dose: 9 mg Mirtazapine (Mirtazapine 15 Mg Tablet) 15 mg PO BEDTIME [facility] Last Admin: 04/09/23 21:37 Dose: 15 mg Nicotine Polacrilex (Nicotine Polacrilex 2 Mg Gum) 4 mg BUCCAL Q2H PRN PRN Reason: Nicotine Cravings Oxybutynin Chloride (Oxybutynin Chloride Er 5 Mg Tab.Er.24) 10 mg PO DAILY [facility] Last Admin: 04/10/23 09:16 Dose: 10 mg Prazosin HCl (Prazosin Hcl 1 Mg Capsule) 2 mg PO BEDTIME [facility]; Protocol Last Admin: 04/09/23 21:38 Dose: 2 mg Quetiapine Fumarate (Quetiapine Fumarate 25 Mg Tablet) 25 mg PO BID PRN PRN Reason: Anxiety Last Admin: 04/10/23 09:15 Dose: 25 mg Quetiapine Fumarate (Quetiapine Fumarate 100 Mg Tablet) 100 mg PO BID@0800,1700 [facility] Last Admin: 04/10/23 09:15 Dose: 100 mg Quetiapine Fumarate (Quetiapine Fumarate 200 Mg Tablet) 200 mg PO BEDTIME [facility] Last Admin: 04/09/23 21:36 Dose: 200 mg Senna (Sennosides 8.6 Mg Tablet) 8.6 mg PO BEDTIME [facility] Last Admin: 04/09/23 21:51 Dose: 8.6 mg Sodium Biphosphate/Sodium Phosphate (Sodium Phosphate,[place]-Dibasic 133 Ml Enema) 133 ml [place] ONCE PRN PRN Reason: Constipation Last Admin: 04/08/23 10:00 Dose: 133 ml Allergies Allergies Allergy/AdvReac Type Severity Reaction Status Date / Time No Known Allergies Allergy Verified 03/21/23 18:13 Assessment & Plan Assessment & Plan (1) Major depressive disorder, recurrent episode: Status: Acute Code(s): F33.9 - Major depressive disorder, recurrent, unspecified Assessment and Plan: 03/25: change ativan to 0.5 mg bid and 1 mg nightly standing dose (2) Benzodiazepine dependence: Status: Acute Code(s): F13.20 - Sedative, hypnotic or anxiolytic dependence, uncomplicated Plan The patient is an elderly male, , with a prior history of major depressive disorder who probably is dependent to benzodiazepines at this moment, admitted for suicidal ideation in the context of running out of his lorazepam. 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 Plan 1. Gather collateral information. 2. Continue with Ativan 1 mg p.o. b.i.d. p.r.n. anxiety. The patient is fully aware that no acid but is highly addictive and he should be using sparingly. 3. The patient reported that he was on Remeron in the past we will started tonight. 4. Continue with medical workout. 5. Reassessment with results. 6. 15 minute checks since the patient is able to contract for safety in the facility. 7. Increase gabapentin up to 300 mg t.i.d. on March 27 to target anxiety. 8. Increased Cymbalta to 60 mg p.o. daily. Cymbalta has been increased up to 60 mg p.o. b.i.d. on in April 03. 9. Discontinue Risperdal and start Seroquel 25 p.o. t.i.d. to target anxiety, it was increased up to 50 p.o. t.i.d. on March 30. On March 31 we increase Seroquel up to 100 mg p.o. t.i.d. to target anxiety. On April 04 we increased to Seroquel 100 p.o. b.i.d. and 200 mg p.o. q.h.s.. 10. Senna and colace added on April 03. 11. Yeimi munoz today on April 08 with good result. 04/10/23: Continue current regime and plan of care. Patient educated on: medication risk/benefits and therapeutic strategies Informed Consent: understands and further education needed Reason for continued inpatient stay Substantial Risk for: rapid decompensation Time Spent With Patient Time: Total time managing care of this patient today ____ minutes.
[2023-04-10 18:00] VITALS: BP 116/62; PULSE 93; RESP 20; TEMP 36.3
[2023-04-10] MEDS: Prazosin HCL 1 MG CAPSULE 2 MG PO (19:59)
[2023-04-10] MEDS: QUEtiapine Fumarate 200 MG TABLET PO (20:00)
[2023-04-10] MEDS: LORazepam 1 MG TABLET PO (20:01)
[2023-04-10] MEDS: Sennosides 8.6 MG TABLET PO (20:01)
[2023-04-10] MEDS: Mirtazapine 15 MG TABLET PO (20:01)
[2023-04-10] MEDS: Melatonin 3 MG TABLET 9 MG PO (20:07)
[2023-04-11 08:58] VITALS: BP 107/66; PULSE 92; RESP 16; TEMP 36.2; O2SAT 92
[2023-04-11] MEDS: QUEtiapine Fumarate 100 MG TABLET PO ×2 (09:00→17:42)
[2023-04-11] MEDS: LORazepam 0.5 MG TABLET PO ×2 (09:00→15:59)
[2023-04-11] MEDS: Gabapentin 300 MG CAPSULE PO ×3 (09:00→21:06)
[2023-04-11] MEDS: oxyBUTYnin chloride ER 5 MG TAB.ER.24 10 MG PO (09:00)
[2023-04-11] MEDS: Docusate Sodium 100 MG CAPSULE PO ×2 (09:00→21:05)
[2023-04-11] MEDS: DULoxetine HCl 60 MG CAPSULE.DR PO ×2 (09:00→21:05)
--- NOTE | 2023-04-11 12:25 | HO.PSYCHPN ---
Subjective Subjective Date of Service: 04/11/23 Reason For Visit: F4.1 General anxiety/MDD recurrent Subjective Notes: Conditional Voluntary Interim History: The nursing staff reported the patient has been complaining of anxiety 06/20. The occupational therapist reported that he went to group yesterday. The social science professor reported that his sister is willing to take him back. On interview the patient reports that he has some constipation, he agreed to increase Remeron up to 30 mg p.o. q.h.s. to target depression. We are going to increase MiraLax to b.i.d.. Mental Status Exam Mental Status Exam Patient Appearance: Appropriate Patient Orientation: Person and Situation Level of Consciousness: Awake and Appropriate Patient Behavior: Guarded and Passive Mood Description: Withdrawn Affect Description: Constricted Patient Cognition Impaired: Yes Ability to Follow Directions: Good Speech Pattern: Clear Hallucinations: None Delusions: Not Present Thought Process: Linear Thought Content: positive for Circumstantial Judgement: Fair Diagnostics Vital Signs (24Hr): Vital Signs - 24 hr 04/10/23 18:00 04/11/23 08:58 Temperature 97.4 F 97.1 F Pulse Rate 93 92 Respiratory Rate 20 16 Blood Pressure 116/62 107/66 Pulse Oximetry 92 Oxygen Delivery Method Room Air Room Air BMI result Body Mass Index 24.2 Medications Medications Current Medications Acetaminophen (Acetaminophen 325 Mg Tablet) 650 mg PO Q6H PRN PRN Reason: Headache/Pain Mild Scale (1-3) Last Admin: 03/26/23 20:18 Dose: 650 mg Al Hydroxide/Mg Hydroxide (Magnesium Hydrox/Alum Hydrox 30 Ml Oral.Susp) 30 ml PO Q6H PRN PRN Reason: Heartburn/Nausea Docusate Sodium (Docusate Sodium 100 Mg Capsule) 100 mg PO BID [facility] Last Admin: 04/11/23 09:00 Dose: 100 mg Duloxetine HCl (Duloxetine Hcl 60 Mg Capsule.Dr) 60 mg PO BID [facility] Last Admin: 04/11/23 09:00 Dose: 60 mg Gabapentin (Gabapentin 300 Mg Capsule) 300 mg PO TID [facility] Last Admin: 04/11/23 09:00 Dose: 300 mg Ibuprofen (Ibuprofen 600 Mg Tablet) 600 mg PO Q6H PRN PRN Reason: Pain, Moderate(Pain Scale 4-6) Last Admin: 04/09/23 21:55 Dose: 600 mg Lorazepam (Lorazepam 1 Mg Tablet) 1 mg PO BEDTIME [facility] Last Admin: 04/10/23 20:01 Dose: 1 mg Lorazepam (Lorazepam 0.5 Mg Tablet) 0.5 mg PO BID@0830,1330 [facility] Last Admin: 04/11/23 09:00 Dose: 0.5 mg Magnesium Hydroxide (Milk Of Magnesia 30 Ml Oral.Susp) 30 ml PO DAILY PRN PRN Reason: Constipation Last Admin: 04/03/23 08:28 Dose: 30 ml Melatonin (Melatonin 3 Mg Tablet) 9 mg PO BEDTIME PRN PRN Reason: insomnia Last Admin: 04/10/23 20:07 Dose: 9 mg Mirtazapine (Mirtazapine 30 Mg Tablet) 30 mg PO BEDTIME [facility] Nicotine Polacrilex (Nicotine Polacrilex 2 Mg Gum) 4 mg BUCCAL Q2H PRN PRN Reason: Nicotine Cravings Oxybutynin Chloride (Oxybutynin Chloride Er 5 Mg Tab.Er.24) 10 mg PO DAILY [facility] Last Admin: 04/11/23 09:00 Dose: 10 mg Prazosin HCl (Prazosin Hcl 1 Mg Capsule) 2 mg PO BEDTIME [facility]; Protocol Last Admin: 04/10/23 19:59 Dose: 2 mg Quetiapine Fumarate (Quetiapine Fumarate 25 Mg Tablet) 25 mg PO BID PRN PRN Reason: Anxiety Last Admin: 04/10/23 09:15 Dose: 25 mg Quetiapine Fumarate (Quetiapine Fumarate 100 Mg Tablet) 100 mg PO BID@0800,1700 [facility] Last Admin: 04/11/23 09:00 Dose: 100 mg Quetiapine Fumarate (Quetiapine Fumarate 200 Mg Tablet) 200 mg PO BEDTIME [facility] Last Admin: 04/10/23 20:00 Dose: 200 mg Senna (Sennosides 8.6 Mg Tablet) 8.6 mg PO BEDTIME [facility] Last Admin: 04/10/23 20:01 Dose: 8.6 mg Sodium Biphosphate/Sodium Phosphate (Sodium Phosphate,[place]-Dibasic 133 Ml Enema) 133 ml [place] ONCE PRN PRN Reason: Constipation Last Admin: 04/08/23 10:00 Dose: 133 ml Allergies Allergies Allergy/AdvReac Type Severity Reaction Status Date / Time No Known Allergies Allergy Verified 03/21/23 18:13 Assessment & Plan Assessment & Plan (1) Major depressive disorder, recurrent episode: Status: Acute Code(s): F33.9 - Major depressive disorder, recurrent, unspecified Assessment and Plan: 03/25: change ativan to 0.5 mg bid and 1 mg nightly standing dose (2) Benzodiazepine dependence: Status: Acute Code(s): F13.20 - Sedative, hypnotic or anxiolytic dependence, uncomplicated Plan The patient is an elderly male, , with a prior history of major depressive disorder who probably is dependent to benzodiazepines at this moment, admitted for suicidal ideation in the context of running out of his lorazepam. 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 Plan 1. Gather collateral information. 2. Continue with Ativan 1 mg p.o. b.i.d. p.r.n. anxiety. The patient is fully aware that no acid but is highly addictive and he should be using sparingly. 3. The patient reported that he was on Remeron in the past we restarted on admission. 4. Continue with medical workout. 5. Reassessment with results. 6. 15 minute checks since the patient is able to contract for safety in the facility. 7. Increase gabapentin up to 300 mg t.i.d. on March 27 to target anxiety. 8. Increased Cymbalta to 60 mg p.o. daily. Cymbalta has been increased up to 60 mg p.o. b.i.d. on in April 03. 9. Discontinue Risperdal and start Seroquel 25 p.o. t.i.d. to target anxiety, it was increased up to 50 p.o. t.i.d. on March 30. On March 31 we increase Seroquel up to 100 mg p.o. t.i.d. to target anxiety. On April 04 we increased to Seroquel 100 p.o. b.i.d. and 200 mg p.o. q.h.s.. 10. Senna and colace added on April 03. 11. Fleet enema on April 08 with good result. 12. Increase Remeron up to 30 mg p.o. q.h.s. to target depression. Reason for continued inpatient stay Substantial Risk for: inability to function, rapid decompensation and med/psych decompensation Time Spent With Patient Time: Total time managing care of this patient today __20__ minutes.
[2023-04-11 18:00] VITALS: BP 119/65; PULSE 80; RESP 18; TEMP 36.7; O2SAT 95
[2023-04-11] MEDS: QUEtiapine Fumarate 200 MG TABLET PO (21:02)
[2023-04-11] MEDS: Sennosides 8.6 MG TABLET PO (21:04)
[2023-04-11] MEDS: Prazosin HCL 1 MG CAPSULE 2 MG PO (21:05)
[2023-04-11] MEDS: Mirtazapine 30 MG TABLET PO (21:06)
[2023-04-11] MEDS: LORazepam 1 MG TABLET PO (21:08)
[2023-04-11] MEDS: Melatonin 3 MG TABLET 9 MG PO (21:12)
[2023-04-12] MEDS: QUEtiapine Fumarate 100 MG TABLET PO ×2 (08:40→17:24)
[2023-04-12] MEDS: polyethylene glycoL 3350 17 GM POWD.PACK PO ×2 (08:40→20:24)
[2023-04-12] MEDS: LORazepam 0.5 MG TABLET PO ×2 (08:40→14:28)
[2023-04-12] MEDS: Gabapentin 300 MG CAPSULE PO ×3 (08:41→20:23)
[2023-04-12] MEDS: DULoxetine HCl 60 MG CAPSULE.DR PO ×2 (08:41→20:24)
[2023-04-12] MEDS: oxyBUTYnin chloride ER 5 MG TAB.ER.24 10 MG PO (08:41)
[2023-04-12] MEDS: Docusate Sodium 100 MG CAPSULE PO ×2 (08:41→20:23)
[2023-04-12 08:45] VITALS: BP 96/56; PULSE 83; RESP 18; TEMP 36.4; O2SAT 96
--- NOTE | 2023-04-12 13:55 | P.PNPSI_ITS ---
Subjective Subjective Date of Service: 04/12/23 Reason For Visit: F4.1 General anxiety/MDD recurrent Subjective Notes: Conditional Voluntary Interim History: The nursing staff reported the patient ate dinner on deck. He has been fully compliant with medication and meals. He slept most of the night. The perinatal social worker reported that he is going to be discharged back home with ancillary services most likely tomorrow. On interview the patient denies new symptoms still dysphoric but with a brighter affect. Mental Status Exam Mental Status Exam Patient Appearance: Appropriate Patient Orientation: Person and Situation Level of Consciousness: Awake and Appropriate Patient Behavior: Guarded and Passive Mood Description: Withdrawn Affect Description: Constricted Patient Cognition Impaired: Yes Ability to Follow Directions: Good Speech Pattern: Clear Hallucinations: None Delusions: Not Present Thought Process: Linear Thought Content: positive for Circumstantial Judgement: Fair Diagnostics Vital Signs (24Hr): Vital Signs - 24 hr 04/11/23 18:00 04/12/23 08:45 Temperature 98.1 F 97.5 F Pulse Rate 80 83 Respiratory Rate 18 18 Blood Pressure 119/65 96/56 L Pulse Oximetry 95 96 Oxygen Delivery Method Room Air Room Air BMI result Body Mass Index 24.2 Medications Medications Current Medications Acetaminophen (Acetaminophen 325 Mg Tablet) 650 mg PO Q6H PRN PRN Reason: Headache/Pain Mild Scale (1-3) Last Admin: 03/26/23 20:18 Dose: 650 mg Al Hydroxide/Mg Hydroxide (Magnesium Hydrox/Alum Hydrox 30 Ml Oral.Susp) 30 ml PO Q6H PRN PRN Reason: Heartburn/Nausea Docusate Sodium (Docusate Sodium 100 Mg Capsule) 100 mg PO BID [facility] Last Admin: 04/12/23 08:41 Dose: 100 mg Duloxetine HCl (Duloxetine Hcl 60 Mg Capsule.Dr) 60 mg PO BID [facility] Last Admin: 04/12/23 08:41 Dose: 60 mg Gabapentin (Gabapentin 300 Mg Capsule) 300 mg PO TID [facility] Last Admin: 04/12/23 08:41 Dose: 300 mg Ibuprofen (Ibuprofen 600 Mg Tablet) 600 mg PO Q6H PRN PRN Reason: Pain, Moderate(Pain Scale 4-6) Last Admin: 04/09/23 21:55 Dose: 600 mg Lorazepam (Lorazepam 1 Mg Tablet) 1 mg PO BEDTIME [facility] Last Admin: 04/11/23 21:08 Dose: 1 mg Lorazepam (Lorazepam 0.5 Mg Tablet) 0.5 mg PO BID@0830,1330 [facility] Last Admin: 04/12/23 08:40 Dose: 0.5 mg Magnesium Hydroxide (Milk Of Magnesia 30 Ml Oral.Susp) 30 ml PO DAILY PRN PRN Reason: Constipation Last Admin: 04/03/23 08:28 Dose: 30 ml Melatonin (Melatonin 3 Mg Tablet) 9 mg PO BEDTIME PRN PRN Reason: insomnia Last Admin: 04/11/23 21:12 Dose: 9 mg Mirtazapine (Mirtazapine 30 Mg Tablet) 30 mg PO BEDTIME [facility] Last Admin: 04/11/23 21:06 Dose: 30 mg Nicotine Polacrilex (Nicotine Polacrilex 2 Mg Gum) 4 mg BUCCAL Q2H PRN PRN Reason: Nicotine Cravings Oxybutynin Chloride (Oxybutynin Chloride Er 5 Mg Tab.Er.24) 10 mg PO DAILY [facility] Last Admin: 04/12/23 08:41 Dose: 10 mg Polyethylene Glycol (Polyethylene Glycol 3350 17 Gm Powd.Pack) 17 gm PO BID [facility] Last Admin: 04/12/23 08:40 Dose: 17 gm Prazosin HCl (Prazosin Hcl 1 Mg Capsule) 2 mg PO BEDTIME [facility]; Protocol Last Admin: 04/11/23 21:05 Dose: 2 mg Quetiapine Fumarate (Quetiapine Fumarate 25 Mg Tablet) 25 mg PO BID PRN PRN Reason: Anxiety Last Admin: 04/10/23 09:15 Dose: 25 mg Quetiapine Fumarate (Quetiapine Fumarate 100 Mg Tablet) 100 mg PO BID@0800,1700 [facility] Last Admin: 04/12/23 08:40 Dose: 100 mg Quetiapine Fumarate (Quetiapine Fumarate 200 Mg Tablet) 200 mg PO BEDTIME [facility] Last Admin: 04/11/23 21:02 Dose: 200 mg Senna (Sennosides 8.6 Mg Tablet) 8.6 mg PO BEDTIME [facility] Last Admin: 04/11/23 21:04 Dose: 8.6 mg Sodium Biphosphate/Sodium Phosphate (Sodium Phosphate,[place]-Dibasic 133 Ml Enema) 133 ml [place] ONCE PRN PRN Reason: Constipation Last Admin: 04/08/23 10:00 Dose: 133 ml Allergies Allergies Allergy/AdvReac Type Severity Reaction Status Date / Time No Known Allergies Allergy Verified 03/21/23 18:13 Assessment & Plan Assessment & Plan (1) Major depressive disorder, recurrent episode: Status: Acute Code(s): F33.9 - Major depressive disorder, recurrent, unspecified Assessment and Plan: 03/25: change ativan to 0.5 mg bid and 1 mg nightly standing dose (2) Benzodiazepine dependence: Status: Acute Code(s): F13.20 - Sedative, hypnotic or anxiolytic dependence, uncomplicated Plan The patient is an elderly male, , with a prior history of major depressive disorder who probably is dependent to benzodiazepines at this moment, admitted for suicidal ideation in the context of running out of his lorazepam. 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 Plan 1. Gather collateral information. 2. Continue with Ativan 1 mg p.o. b.i.d. p.r.n. anxiety. The patient is fully aware that no acid but is highly addictive and he should be using sparingly. 3. The patient reported that he was on Remeron in the past we restarted on admission. 4. Continue with medical workout. 5. Reassessment with results. 6. 15 minute checks since the patient is able to contract for safety in the facility. 7. Increase gabapentin up to 300 mg t.i.d. on March 27 to target anxiety. 8. Increased Cymbalta to 60 mg p.o. daily. Cymbalta has been increased up to 60 mg p.o. b.i.d. on in April 03. 9. Discontinue Risperdal and start Seroquel 25 p.o. t.i.d. to target anxiety, it was increased up to 50 p.o. t.i.d. on March 30. On March 31 we increase Seroquel up to 100 mg p.o. t.i.d. to target anxiety. On April 04 we increased to Seroquel 100 p.o. b.i.d. and 200 mg p.o. q.h.s.. 10. Senna and colace added on April 03. 11. Fleet enema on April 08 with good result. 12. Increase Remeron up to 30 mg p.o. q.h.s. to target depression. Reason for continued inpatient stay Substantial Risk for: inability to function, rapid decompensation and med/psych decompensation Time Spent With Patient Time: Total time managing care of this patient today __20__ minutes.
[2023-04-12] MEDS: Milk of Magnesia 30 ML ORAL.SUSP PO (17:24)
[2023-04-12 18:00] VITALS: BP 100/65; PULSE 105; RESP 18; TEMP 36.8; O2SAT 97
[2023-04-12] MEDS: QUEtiapine Fumarate 200 MG TABLET PO (20:23)
[2023-04-12] MEDS: Sennosides 8.6 MG TABLET PO (20:23)
[2023-04-12] MEDS: Mirtazapine 30 MG TABLET PO (20:23)
[2023-04-12] MEDS: Prazosin HCL 1 MG CAPSULE 2 MG PO (20:23)
[2023-04-12] MEDS: LORazepam 1 MG TABLET PO (20:24)
[2023-04-12] MEDS: Melatonin 3 MG TABLET 9 MG PO (20:29)
[2023-04-12] MEDS: Sodium Phosphate,Mono-Dibasic 133 ML ENEMA PR (20:30)
--- NOTE | 2023-04-13 09:23 | P.DS_ITS ---
DS: Providers Provider Date of Service: 04/13/23 Date of admission: 03/21/23 17:37 Date of discharge: 04/13/23 Primary care physician: Unknown Physician Consults: 03/21/23 18:45 Consult to Hospitalist Routine Comment: Consulting Provider: Hospitalist Reason For Exam: admission physical Attending physician on discharge: Rafita Finney DS: Diagnosis Discharge Diagnosis (1) Major depressive disorder, recurrent episode: Status: Acute (2) Benzodiazepine dependence: Status: Acute DS: Medications Discharge Medications Home Medications: Home Medications Medication Instructions Recorded Confirmed duloxetine 20 mg capsule,delayed 40 mg PO DAILY 03/21/23 03/21/23 release gabapentin 100 mg capsule 200 mg PO TID 03/21/23 03/21/23 lorazepam 0.5 mg tablet 0.5 mg PO BID PRN anxiety 03/21/23 03/21/23 melatonin 3 mg tablet 9 mg PO BEDTIME PRN insomnia 03/21/23 03/21/23 mirtazapine 15 mg tablet 15 mg PO BEDTIME 03/21/23 03/21/23 oxybutynin chloride 10 mg 10 mg PO DAILY 03/21/23 03/21/23 tablet,extended release 24 hr risperidone 0.25 mg tablet 0.5 mg PO BID 03/21/23 03/21/23 risperidone 0.5 mg disintegrating 0.5 mg PO BID PRN Anxiety 03/21/23 03/21/23 tablet Mental Status Exam Mental Status Exam Patient Appearance: Appropriate Patient Orientation: Person and Situation Level of Consciousness: Awake and Appropriate Patient Behavior: Guarded and Passive Mood Description: Withdrawn Affect Description: Constricted Patient Cognition Impaired: Yes Ability to Follow Directions: Good Speech Pattern: Clear Hallucinations: None Delusions: Not Present Thought Process: Linear Thought Content: positive for [place] and positive for Poverty of Content Judgement: Fair DS: Summary Hospital Course Hospital Course: The patient was initially admitted into this facility for exacerbation of depression symptoms with poor performance of his ADL is unable to take care of himself. The patient carries a diagnosis of major depressive disorder and he was admitted before and he walking to the emergency room stating that he was suicidal after he ran out of his lorazepam. Please see the HPI of the admission note for further details. On admission, we review his list of medications and put him on lorazepam p.r.n., restarted his antidepressants and initially change the Risperdal to Seroquel to help him with the anxiety. Cymbalta was titrated up successfully up to 60 mg p. o. b.i.d. to target depression, Seroquel was titrated up with fair tolerable it is. Even though, the patient was most of the time seclusive in his room without interacting to other people. I offer the patient ECT since he was not responding. He has refused ECT or any other intervention besides medication management. We increase Remeron up to 30 mg p.o. q.h.s. currently the patient is in to antidepressants +Seroquel as augmentation for depression. His lorazepam was increased 2.5 p.o. b.i.d. and 1 mg p.o. q.h.s.. The patient has suffered from constipation during the admission and we increase his bowel regimen with some improvement. The patient's mood improved, he was able to contract for safety and still has some residual symptoms. His sister who is involved in his care agreed to take him back home. Since there were no safety concerns discharge planning was discussed. Time spent discussing smoking cessation with patient: 3 to 10 minutes Status at Discharge Cognitive/behavioral status at discharge: Impaired at baseline Functional status at discharge: independent ambulation Overall status at discharge: patient is progressing back to baseline Time Spent with Patient Time attestation: Total time managing care of this patient today __30__ minutes. Time spent: Less than 30 minutes Discharge Plan Discharge Anticipated Discharge Date/Time: 04/13/23 11:00 Patient Disposition: Home, Self-Care Discharge Diagnosis: Major depressive disorder Dementia Referrals: [facility] Home Care: Teresa Bui-[facility] [Other] - 1 Week (Teresa's extension is [phone]. She will be calling you after 12pm today, 04/13.) Therapy & psychiatry: [facility] [Other] - 04/18/23 10:00 am (Walk-in on Monday or anytime between 10am and 12pm to request therapy and psychiatry services. Let them know you are a hospital discharge and bring your discharge paperwork, as well as your ID and health insurance card) Leslie Pena NP [Physician Transactional Attorney] - 1 Week (The office will call you later today to schedule an appointment ) Discharge Medications: New sennosides [Senna Lax] 8.6 mg Tablet 8.6 mg PO BEDTIME 30 Days Qty: 30 0RF polyethylene glycol 3350 17 gram Powder In Packet 17 g PO BID 30 Days Qty: 60 0RF prazosin 1 mg Capsule 2 mg PO BEDTIME 30 Days Qty: 60 0RF Protocol: Hold for SBP< HOLD for SBP < : 90 quetiapine 200 mg Tablet 200 mg PO BEDTIME 30 Days Qty: 30 0RF quetiapine 100 mg Tablet 100 mg PO BID@0800,1700 30 Days Qty: 60 0RF lorazepam 0.5 mg Tablet 0.5 mg PO BID@0830,1330 30 Days Qty: 60 0RF mirtazapine 30 mg Tablet 30 mg PO BEDTIME 30 Days Qty: 30 0RF gabapentin 300 mg Capsule 300 mg PO TID 30 Days Qty: 90 0RF lorazepam 1 mg Tablet 1 mg PO BEDTIME 30 Days Qty: 30 0RF ibuprofen 600 mg Tablet 600 mg PO Q6H PRN (Reason: Pain, Moderate(Pain Scale 4-6)) 30 Days Qty: 60 0RF duloxetine 60 mg Capsule,Delayed Release(Dr/Ec) 60 mg PO BID 30 Days Qty: 60 0RF Continued oxybutynin chloride 10 mg tablet extended release 24hr 10 mg PO DAILY 30 Days Qty: 30 0RF melatonin 3 mg tablet 9 mg PO BEDTIME PRN (Reason: insomnia) 30 Days Qty: 90 0RF Discontinued risperidone 0.25 mg tablet 0.5 mg PO BID lorazepam 0.5 mg tablet 0.5 mg PO BID PRN (Reason: anxiety) mirtazapine 15 mg tablet 15 mg PO BEDTIME gabapentin 100 mg capsule 200 mg PO TID risperidone 0.5 mg tablet,disintegrating 0.5 mg PO BID PRN (Reason: Anxiety) duloxetine 20 mg capsule,delayed release(DR/EC) 40 mg PO DAILY Discharge Orders: Discharge Order (Routine); Ordered 04/13/23 Ordered By: Rafita Finney Diet: Advance to usual diet Activity on Discharge: As tolerated Stand Alone Forms: Patient Portal Discharge page Care Plan Goals: Care plan goals achieved in this admission resolution of suicidality Health Concerns: Continue treatment with primary healthcare providers Plan of Treatment: Continue treatment as an outpatient in psychiatric clinic Assessment: Elderly male with a past history of depression, benzodiazepine dependence and cognitive impairment admitted for suicidality who he ran out of his lorazepam. At this moment he is safe, with improvement of his symptoms with 20 depressants and benzodiazepines that we could not discontinue.
[2023-04-13 09:25] VITALS: BP 99/59; PULSE 99; RESP 20; TEMP 36.3; O2SAT 97
[2023-04-13] MEDS: oxyBUTYnin chloride ER 5 MG TAB.ER.24 10 MG PO (09:45)
[2023-04-13] MEDS: polyethylene glycoL 3350 17 GM POWD.PACK PO (09:45)
[2023-04-13] MEDS: QUEtiapine Fumarate 100 MG TABLET PO (09:46)
[2023-04-13] MEDS: LORazepam 0.5 MG TABLET PO (09:46)
[2023-04-13] MEDS: DULoxetine HCl 60 MG CAPSULE.DR PO (09:46)
[2023-04-13] MEDS: Gabapentin 300 MG CAPSULE PO (09:46)
[2023-04-13] MEDS: Docusate Sodium 100 MG CAPSULE PO (09:46)
--- NOTE | 2023-04-13 11:59 | PC.NURSE ---
Pt. A & O X 4 with intact memory. Reports readiness for discharge. Denies SI/HI/AH/VH. Continues to endorse depression and anxiety, but states, It's better. Discharge instructions and medications reviewed with pt. and brothers, who verbalized understanding. Pt. ambulated off unit accompanied by brothers at 11:50.
== END 2023-04-13 11:50 | disposition home or self-care (01) | DRG 885 ==
PROVIDERS: Admitting Provider Psychiatry & Neurology Psychiatry; Visit Provider Psychiatry & Neurology Psychiatry
DX: F33.9 Major depressive disorder, recurrent, unspecified (principal); R45.851 Suicidal ideations; F13.20 Sedative, hypnotic or anxiolytic dependence, uncomplicated; F03.90 Unspecified dementia, unspecified severity, without behavioral disturbance, psychotic disturbance, mood disturbance, and anxiety; F17.210 Nicotine dependence, cigarettes, uncomplicated; Z71.6 Tobacco abuse counseling; F41.1 Generalized anxiety disorder; Z79.899 Other long term (current) drug therapy

== ENCOUNTER → 2023-03-21 17:37 | Outpatient (BNV) | payer MEDICARE, SELFPAY | PROVIDERS: Admitting Provider Psychiatry & Neurology Psychiatry; Visit Provider Student in an Organized Health Care Education/Training Program | DX: Z00.00 Encounter for general adult medical examination without abnormal findings (principal) | CPT/HCPCS: 99222 ==

== ENCOUNTER → 2023-03-21 17:37 | Outpatient (BNV) | payer MEDICARE, SELFPAY | PROVIDERS: Admitting Provider Psychiatry & Neurology Psychiatry; Visit Provider Psychiatry & Neurology Psychiatry | DX: F33.2 Major depressive disorder, recurrent severe without psychotic features (principal); F13.20 Sedative, hypnotic or anxiolytic dependence, uncomplicated | CPT/HCPCS: 99231; 99232; 99238; 99499 ==